=== PATIENT | male | born 1965 | race African-American/Black ===

== ENCOUNTER 2017-02-24 16:16 | Observation (INO) | payer MEDICARE, MEDICAID ==
[~2017-02-24] VITALS: Ht 172.7 cm; Wt 68.0 kg
[~2017-02-24 16:16] MED LIST: BACTRIM DS1 TAB PO; CEPHALEXIN500 M1 PO; CRESTOR10 MG PO; CRESTOR5 MG PO; DIPHENHYDRAM25 M2 PO; FIORICET PO; FISH OIL1000 MG PO; FLEXERIL OR; FLEXERIL PO; FLEXERIL5 M1 PO; FLUOXETINE20 MG PO; GLUCOSE METER XX; HUMULIN 70/30 SC; HYDROMORPHON8 MG PO; IBUPROFEN800 MG PO; KETOCONAZOLE2 % EX; LAMICTAL100 M1 OR; LISINOPRIL10 MG PO; LISINOPRIL5 MG PO; LORTAB 5/3255 MG PO; METFORMIN1000 MG PO; METFORMIN500 M1 PO; MORPHINE SUL60 MG PO; NAPROSYN375 MG PO; NAPROSYN500 MG PO; NOVOLIN 70/30 SC; NOVOLIN R IJ; PREDNISONE20 MG PO; TESSALON PER100 MG PO; TIZANIDINE4 MG PO; TRAZODONE50 MG PO; ULTRAM50 M1 PO; VENTOLIN HFA IN; ZITHROMAX250 MG PO; ZITHROMAX500 MG PO; ZOFRAN4 MG/TAB PO; ZPAK PO; [UNRECOGNIZED DRUG - SUPPLY] SC; [UNRECOGNIZED DRUG - SUPPLY] SC
--- NOTE | 2017-02-24 16:16 | NUR ---
TO ROOM 12 VIA STRETCHER BY EMS. ALERT. DRINKING WATER. STATES HE TAKESINSULIN WHEN HE THINKS ABOUT IT.... IS SUPPOSED TO TAKE A B/P PILL AND A WATER PILL BUT DOESN'T TAKE THEM. LAST TAKEN 3 DAYS AGO
[2017-02-24 16:52] LABS: HEMATOCRIT 49.4 % (39.0-50.0); HEMOGLOBIN 17.8 g/dl (14.0-18.0); IMMATURE GRANULOCYTES 0.2 % (0.0-1.0); MEAN CORPUSCULAR HGB 29.9 pG CALC (26.0-32.0); NEUT# 2.7 thou/uL (1.82-7.42); RED BLOOD COUNT 5.95 mill/uL (4.70-6.10); RED CELL DISTRI WIDTH 13.8 % (11.5-15.5)
[2017-02-24 17:37] LABS: ALBUMIN 4.5 g/dL (3.2-5.0); ALKALINE PHOSPHATASE 105 u/l (38-126); ANION GAP 18 (6-22 (CALC)); BILIRUBIN, TOTAL 0.7 mg/dL (0.0-1.4); BUN 17 mg/dL (9-20); BUN/CREATININE RATIO 16 (12-20 (CALC)); CALCIUM 9.4 mg/dL (8.4-10.2); CARBON DIOXIDE 26 mmol/l (22-30); CHLORIDE 96 mmol/l (95-108); CREATININE 1.1 mg/dL (0.7-1.3); GFR > 60 ML/MIN (>=60 (CALC)); GFR FOR AFR.AMER. > 60 ML/MIN (>=60 (CALC)); POTASSIUM 4.6 mmol/l (3.5-5.1); SGOT/AST 16 u/l (17-59); SGPT/ALT 38 u/l (21-72); SODIUM 135 mmol/l (137-146); TOTAL PROTEIN 7.4 g/dL (6.3-8.2)
[2017-02-24] MEDS ORDERED: B/P PILL (17:38)
[2017-02-24] MEDS ORDERED: WATER PILL PO (17:38)
[2017-02-24 17:45] LABS: GLUCOSE 641 mg/dL (75-110)
[2017-02-24 17:49] LABS: MYOGLOBIN 39 ng/mL (0 - 121)
--- NOTE | 2017-02-24 18:15 | NUR ---
SOCO PRINTED TO MED SURG
--- NOTE | 2017-02-24 18:37 | NUR ---
PT RESTS IN THE STRETCHER WITH FAMILY AT BEDSIDE, NO COMPLAINTS OR DISTRESS NOTED.
--- NOTE | 2017-02-24 18:59 | NUR ---
REPORT CALLED TO MARY, TO FLOOR SOON.
--- NOTE | 2017-02-24 19:18 | NUR ---
PT PRESENTED TO THE ROOM WITH ER STAFF AT 191. PT ORIENTED TO ROOM AND CALL LIGHT SYSTEM. IV PATENT. PT HAS NO COMPLAINTS OF PAIN AT THIS TIME. PT AMBULATED FROM WHEELCHAIR TO BED. RESP EVEN AND UNLABORED. PT STATED HIS "HEAD WAS ITCHY". PT HAS A SMALL SCAB ON THE BACK OF HIS HEAD. PT STATES THAT HE HAS NOT HAD ANY FALLS RECENTLY. PT STATES THE SCAB "MIGHT BE FROM THE BED BUGS AT HOME". WILL CONTINUE TO MONITOR BLOOD SUGAR CLOSELY. CALL LIGHT WITHIN REACH.
--- NOTE | 2017-02-24 19:20 | NUR ---
TRANSPORTED PT TO FLOOR FOR YESSENIA ARGUETA WHO ALREADY GAVE REPORT. IV INFUSING TO RFA
[2017-02-24 20:00] VITALS: BP 135/89
--- NOTE | 2017-02-25 00:20 | NUR ---
NOTIFY DR GRIGGS OF PATIENT BLOOD SUGAR LEVEL. ORDERS RECEIVED FOR 10 UNITS OF NOVOLOG.
[2017-02-25 00:31] VITALS: BP 125/76
--- NOTE | 2017-02-25 00:39 | NUR ---
PT GIVEN NOVOLOG 10 UNITS FOR BLOOD SUGAR OF 489. WILL CONTINUE TO MONITOR.
--- NOTE | 2017-02-25 03:20 | NUR ---
PT RESTING IN BED AT THIS TIME AND APPEARS TO BE SLEEPING WITH EYES CLOSED. NO ACUTE SIGNS OF DISTRESS NOTED. IV PATENT. RESP EVEN AND UNLABORED. CALL LIGHT WITHIN REACH.
[2017-02-25 04:48] VITALS: BP 133/69
--- NOTE | 2017-02-25 05:57 | NUR ---
NO ACUTE CHANGES IN PT CONDITION. PT APPEARS TO BE SLEEPING AT THIS TIME. RESP EVEN AND UNLABORED. IV PATENT. CALL LIGHT WITHIN REACH.
[2017-02-25 06:00] LABS: HEMATOCRIT 43.9 % (39.0-50.0); HEMOGLOBIN 15.7 g/dl (14.0-18.0); MEAN CELL VOLUME 84.6 fL CALC (80.0-100.0); MEAN CORPUSCULAR HGB 30.3 pG CALC (26.0-32.0); MEAN CORPUSCULAR HGB CONC 35.8 g/L CALC (32.0-36.0); RED BLOOD COUNT 5.19 mill/uL (4.70-6.10); RED CELL DISTRI WIDTH 12.1 % (11.5-15.5)
[2017-02-25 06:06] LABS: ANION GAP 17 (6-22 (CALC)); BUN 22 mg/dL (9-20); BUN/CREATININE RATIO 21 (12-20 (CALC)); CALCIUM 9.6 mg/dL (8.4-10.2); CALCULATED LDLCHOLESTEROL 71 mg/dL (62-129 (CALC)); CARBON DIOXIDE 25 mmol/l (22-30); CHLORIDE 103 mmol/l (95-108); CHOLESTEROL HDL RATIO 2.5 (<4.4 (CALC)); CREATININE 1.1 mg/dL (0.7-1.3); GFR > 60 ML/MIN (>=60 (CALC)); GFR FOR AFR.AMER. > 60 ML/MIN (>=60 (CALC)); GLUCOSE 281 mg/dL (75-110); HDL CHOLESTEROL 61 mg/dL (>=40); MAGNESIUM 2.1 mg/dL (1.6-2.3); POTASSIUM 4.4 mmol/l (3.5-5.1); SODIUM 140 mmol/l (137-146); TOTAL CHOLESTEROL 153 mg/dl (0-199); TOTAL TRIGLYCERIDES 101 mg/dl (30-149); VLDL CHOLESTROL 20 mg/dl (8-62 (CALC))
[2017-02-25 08:40] VITALS: BP 141/80
--- NOTE | 2017-02-25 08:45 | NUR ---
PT INFORMED OF ISOLATION PRECAUTIONS IN REGARDS TO REPORTED BED BUGS WITHIN THE LAST WEEK. PT STATES UNDERSTANDING, ASKS IF HE IS ALOUD VISITIORS. PT INFORMED OF THE RIGHT TO HAVE A PT ADVOCATE. ADVISED PT THAT IF HE DID NOT WANT VISITORS, THEY COULD BRING ITEMS TO DESK AND STAFF COULD DELIVER. STATES UNDERSTANDING. DISPOSITION IS PLEASANT, AFTER CHANGES AND ISOLATION ATTIRE PRESENTED.
--- NOTE | 2017-02-25 12:30 | NUR ---
PT VISITOR EDUCATED OF PROPER ATTIRE FOR ISOLATION, STATES UNDERSTANDING. ALSO INFORMED STAFF OF DISLODGED IV SITE. MD NOTIFIED, ORDER FOR NO IV SITE GIVEN AT THIS TIME. PT INFORMED OF UPDATE AND SET-UP FOR SHOWER.
[2017-02-25] MEDS ORDERED: LEVEMIR FL100 UNIT/M SC (14:32)
[2017-02-25] MEDS ORDERED: JANUVIA100 MG PO (14:32)
--- NOTE | 2017-02-25 14:59 | NUR ---
PT LEFT FLOOR AT THIS TIME WITHOUT DISCHARGE PAPERWORK OR PRESCRIPTIONS, TOLD UC "MY RIDE IS HERE, KEELY GOT TO GO." MD ON FLOOR AND AWARE, NEXT OF KIN NOTIFIED AND STATES "IM GOING TO BRING HIM BACK UP THEIR." DISCHARGE PAPERWORK AT DESK FOR WHEN HE COMES BACK
== END 2017-02-25 14:39 | disposition home or self-care (01) ==
LOC: ED 16:16 → ED-I 16:56 → ED 18:13 → MS2 18:14
PROVIDERS: Emergency Medicine; ADMIT Internal Medicine; ATTEND Internal Medicine
PROC: 3E0234Z Introduction of Serum, Toxoid and Vaccine into Muscle, Percutaneous Approach (ICD-10-PCS; principal; 2017-02-25)
PROC: 3E0234Z Introduction of Serum, Toxoid and Vaccine into Muscle, Percutaneous Approach (ICD-10-PCS; 2017-02-25)
DX: E11.65 Type 2 diabetes mellitus with hyperglycemia (principal); I10 Essential (primary) hypertension; E78.5 Hyperlipidemia, unspecified; F17.210 Nicotine dependence, cigarettes, uncomplicated; Z23 Encounter for immunization; Z79.4 Long term (current) use of insulin; Z91.14 Patient's other noncompliance with medication regimen

== ENCOUNTER 2017-12-05 16:32 | Emergency (ER) | payer MEDICARE ==
[~2017-12-05] VITALS: Ht 172.7 cm; Wt 78.0 kg
[~2017-12-05 16:32] MED LIST changes: +B/P PILL; +JANUVIA100 MG PO; +LEVEMIR FL100 UNIT/M SC; +WATER PILL PO
[2017-12-05 17:07] VITALS: BP 143/93
== END 2017-12-05 17:09 | disposition home or self-care (01) ==
LOC: ED 16:32
DX: Z76.0 Encounter for issue of repeat prescription (principal); E11.65 Type 2 diabetes mellitus with hyperglycemia; F17.210 Nicotine dependence, cigarettes, uncomplicated; Z91.19 Patient's noncompliance with other medical treatment and regimen; Z79.4 Long term (current) use of insulin

== ENCOUNTER 2018-02-07 01:27 | Emergency (ER) | payer MEDICARE ==
[~2018-02-07] VITALS: Ht 172.7 cm; Wt 82.3 kg
[2018-02-07 02:12] LABS: HEMATOCRIT 45.8 % (39.0-50.0); HEMOGLOBIN 16.3 g/dl (14.0-18.0); IMMATURE GRANULOCYTES 0.1 % (0.0-5.0); MEAN CELL VOLUME 83.3 fL CALC (80.0-100.0); MEAN CORPUSCULAR HGB 29.6 pG CALC (26.0-32.0); MEAN CORPUSCULAR HGB CONC 35.6 g/L CALC (32.0-36.0); NEUT# 5.52 thou/uL (1.82-7.42); RED BLOOD COUNT 5.5 mill/uL (4.70-6.10); RED CELL DISTRI WIDTH 12.5 % (11.5-15.5)
[2018-02-07 02:27] LABS: ALBUMIN 4.4 g/dL (3.2-5.0); ALKALINE PHOSPHATASE 107 u/l (38-126); AMYLASE 62 u/l (30-110); ANION GAP 18 (6-22 (CALC)); BUN 15 mg/dL (9-20); BUN/CREATININE RATIO 13 (12-20 (CALC)); CARBON DIOXIDE 27 mmol/l (22-30); CHLORIDE 97 mmol/l (95-108); CREATININE 1.1 mg/dL (0.7-1.3); GFR > 60 ML/MIN (>=60 (CALC)); GFR FOR AFR.AMER. > 60 ML/MIN (>=60 (CALC)); LIPASE 85 u/l (23-300); POTASSIUM 4.4 mmol/l (3.5-5.1); SGOT/AST 31 u/l (17-59); SODIUM 137 mmol/l (137-146); TOTAL PROTEIN 7.8 g/dL (6.3-8.2)
[2018-02-07] MEDS ORDERED: PHENERGAN25 MG RE (04:57)
[2018-02-07 05:00] VITALS: BP 125/68
== END 2018-02-07 05:05 | disposition home or self-care (01) ==
LOC: ED 01:27
PROVIDERS: Family Medicine
DX: K52.9 Noninfective gastroenteritis and colitis, unspecified (principal); E11.9 Type 2 diabetes mellitus without complications

== ENCOUNTER 2018-04-20 11:22 | Emergency (ER) | payer MEDICARE, MEDICAID ==
[~2018-04-20] VITALS: Ht 172.7 cm; Wt 90.0 kg
[~2018-04-20 11:22] MED LIST changes: +PHENERGAN25 MG RE
[2018-04-20 12:32] LABS: URINE BILIRUBIN - DIPSTICK NEGATIVE (NEGATIVE); URINE BLOOD DIPSTICK NEGATIVE (NEGATIVE); URINE COLOR YELLOW; URINE GLUCOSE - DIPSTICK >=1000 mg/dL (NEGATIVE); URINE KETONE 15 mg/dL (NEGATIVE); URINE LEUK ESTERASE NEGATIVE (NEGATIVE); URINE NITRITE - DIPSTICK NEGATIVE (Negative); URINE PROTEIN - DIPSTICK NEGATIVE (NEG-TRACE); URINE UROBILINOGEN - DIPSTICK 0.2 E.U./dL (0.2)
[2018-04-20 12:47] LABS: HEMATOCRIT 44.1 % (39.0-50.0); HEMOGLOBIN 15.6 g/dl (14.0-18.0); IMMATURE GRANULOCYTES 0.1 % (0.0-5.0); MEAN CELL VOLUME 82.9 fL CALC (80.0-100.0); MEAN CORPUSCULAR HGB 29.3 pG CALC (26.0-32.0); MEAN CORPUSCULAR HGB CONC 35.4 g/L CALC (32.0-36.0); NEUT# 4.79 thou/uL (1.82-7.42); RED BLOOD COUNT 5.32 mill/uL (4.70-6.10); RED CELL DISTRI WIDTH 12.8 % (11.5-15.5)
[2018-04-20 12:54] LABS: ALBUMIN 4.2 g/dL (3.2-5.0); ALKALINE PHOSPHATASE 112 u/l (38-126); ANION GAP 19 (6-22 (CALC)); BILIRUBIN, TOTAL 1.1 mg/dL (0.0-1.4); BUN 16 mg/dL (9-20); BUN/CREATININE RATIO 14 (12-20 (CALC)); CARBON DIOXIDE 23 mmol/l (22-30); CHLORIDE 94 mmol/l (95-108); CREATININE 1.1 mg/dL (0.7-1.3); GFR > 60 ML/MIN (>=60 (CALC)); GFR FOR AFR.AMER. > 60 ML/MIN (>=60 (CALC)); POTASSIUM 4.4 mmol/l (3.5-5.1); SGOT/AST 26 u/l (17-59); SODIUM 132 mmol/l (137-146); TOTAL PROTEIN 7.2 g/dL (6.3-8.2)
[2018-04-20 13:06] LABS: MYOGLOBIN 86 ng/mL (0 - 121)
[2018-04-20 13:50] LABS: BARBITURATES NEGATIVE (NEGATIVE); COCAINE POSITIVE (NEGATIVE); METHADONE NEGATIVE (NEGATIVE); OXCYCODONE NEGATIVE (NEGATIVE); TETRAHYDROCANNABIONOL NEGATIVE (NEGATIVE); TRICYLIC ANTIDEPRESSANTS NEGATIVE (NEGATIVE)
[2018-04-20] MEDS ORDERED: LEVEMIR FL100 UNIT/M SC (14:52)
[2018-04-20 15:17] VITALS: BP 134/84
[2018-04-20] MEDS ORDERED: NOVOLIN 70/30 SC (15:56)
== END 2018-04-20 15:41 | disposition home or self-care (01) ==
LOC: ED 11:22
PROVIDERS: Emergency Medicine
DX: E11.65 Type 2 diabetes mellitus with hyperglycemia (principal); T38.3X6A Underdosing of insulin and oral hypoglycemic [antidiabetic] drugs, initial encounter; F17.210 Nicotine dependence, cigarettes, uncomplicated; Z79.4 Long term (current) use of insulin

== ENCOUNTER 2018-07-15 13:30 | Observation (INO) | payer MEDICARE, MEDICAID ==
[~2018-07-15] VITALS: Ht 172.7 cm; Wt 68.0 kg
[2018-07-15] VITALS (11 sets, daily range): BP systolic 113–149; BP diastolic 73–97
--- NOTE | 2018-07-15 13:39 | NUR ---
PT TO ROOM VIA EMS PT STATES THAT HE LAST HAD HIS INSULIN 07/09/18- AND HAS RAN OUT SINCE THEN. PT STATES HAVING HEADACHE THAT OCCURS WHEN HIS SUGAR TAPAN HIGH. PT IS AOX4. DENIES ANY C/P, SOB, N/V OR WEAKNESS.
[2018-07-15 14:04] LABS: HEMATOCRIT 49.3 % (39.0-50.0); HEMOGLOBIN 17.3 g/dl (14.0-18.0); IMMATURE GRANULOCYTES 0.3 % (0.0-5.0); MEAN CELL VOLUME 82.6 fL CALC (80.0-100.0); MEAN CORPUSCULAR HGB CONC 35.1 g/L CALC (32.0-36.0); NEUT# 4.34 thou/uL (1.82-7.42); RED BLOOD COUNT 5.97 mill/uL (4.70-6.10); RED CELL DISTRI WIDTH 12.3 % (11.5-15.5)
[2018-07-15 14:22] LABS: ALBUMIN 4.8 g/dL (3.2-5.0); ALKALINE PHOSPHATASE 117 u/l (38-126); BILIRUBIN, TOTAL 0.8 mg/dL (0.0-1.4); BUN 31 mg/dL (9-20); BUN/CREATININE RATIO 24 (12-20 (CALC)); CARBON DIOXIDE 23 mmol/l (22-30); CHLORIDE 90 mmol/l (95-108); CREATININE 1.3 mg/dL (0.7-1.3); GFR 58 ML/MIN (>=60 (CALC)); GFR FOR AFR.AMER. > 60 ML/MIN (>=60 (CALC)); LIPASE 151 u/l (23-300); SGOT/AST 31 u/l (17-59); SODIUM 130 mmol/l (137-146); TOTAL PROTEIN 7.8 g/dL (6.3-8.2)
[2018-07-15 14:33] LABS: ANION GAP 23 (6-22 (CALC)); POTASSIUM 6.1 mmol/l (3.5-5.1)
--- NOTE | 2018-07-15 14:34 | NUR ---
PT ASLEEP ON STRETCHER, IV PATENT WITH FLUIDS RUNNING.
--- NOTE | 2018-07-15 14:47 | NUR ---
SBAR PRINTED TO FLOOR
--- NOTE | 2018-07-15 15:10 | NUR ---
PT INFORMED OF ADMISSON. NO COMPLAINTS STATED AT THIS TIME.
--- NOTE | 2018-07-15 15:17 | NUR ---
REPORT CALLED TO ICU,SHARON CASAS ACCEPTED PT
--- NOTE | 2018-07-15 15:23 | NUR ---
PT ARRIVED TO ICU 6 BY STRETCHER WITH IV MEDS. NONSLID SOCKS PLACED ON PT. PT WALKED TO NEW BED WITH STEADY GAIT. ON MONITOR. IVF RUNNING. IV INSULIN RUNNING AT 5units PER HOUR.
--- NOTE | 2018-07-15 15:34 | NUR ---
Admission Note Report Given to: SHARON RN Transported by: Wheelchair X Stretcher Transported with: X Nurse Transporter X Patent IV O2 X Cork Tipper TRANSPORTED TO ICU 6 WITHOUT INCIDENT
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
[2018-07-15 16:09] LABS: URINE BILIRUBIN - DIPSTICK NEGATIVE (NEGATIVE); URINE BLOOD DIPSTICK NEGATIVE (NEGATIVE); URINE COLOR YELLOW; URINE GLUCOSE - DIPSTICK >=1000 mg/dL (NEGATIVE); URINE KETONE 15 mg/dL (NEGATIVE); URINE LEUK ESTERASE NEGATIVE (NEGATIVE); URINE NITRITE - DIPSTICK NEGATIVE (Negative); URINE PH 6.5 (4.5-8.0); URINE PROTEIN - DIPSTICK NEGATIVE (NEG-TRACE); URINE UROBILINOGEN - DIPSTICK 0.2 E.U./dL (0.2)
[2018-07-15] MEDS ORDERED: LOSARTAN POT25 MG PO (16:39)
[2018-07-15] MEDS ORDERED: HUMULIN 70/30 SC (16:39)
[2018-07-15] MEDS ORDERED: CRESTOR20 MG PO (16:40)
[2018-07-15] MEDS ORDERED: TERBINAFINE250 M1 PO (16:41)
[2018-07-15] MEDS ORDERED: VITAMI16 (16:42)
[2018-07-15] MEDS ORDERED: VITAMIN B (16:42)
[2018-07-15] MEDS ORDERED: VITAMIN D (16:43)
[2018-07-15] MEDS ORDERED: VITAMIN B650 MG (16:43)
--- NOTE | 2018-07-15 16:52 | NUR ---
DR CLEMENTS @BEDSIDE WITH PT.
--- NOTE | 2018-07-15 17:20 | NUR ---
PT UP TO SIDE OF BED TO USE URINAL.
--- NOTE | 2018-07-15 17:41 | NUR ---
DINNER TRAY HELD IN NOURISHMENT ROOM UNTIL PTS OFF INSULIN DRIP.
--- NOTE | 2018-07-15 19:00 | NUR ---
awake. denies n/v. monitoring engineer shows sinus rhythm. #18 lac. insulin gtt infusing @ 4u/hr, 1/2 ns infusing @ 75cchr. voids per urinal. fall precautions cont. supper meal given.
--- NOTE | 2018-07-15 22:00 | NUR ---
watching tv. denies distress. terminal supervisor shows sinus rhythm.
[2018-07-16] VITALS (17 sets, daily range): BP systolic 111–159; BP diastolic 65–93
--- NOTE | 2018-07-16 00:01 | NUR ---
awakens easily. denies c/o. ivf infusing well.
--- NOTE | 2018-07-16 02:00 | NUR ---
resting quietly. resps even & unlabored. color television console monitor shows sinus rhythm.
--- NOTE | 2018-07-16 04:00 | NUR ---
yes closed. no distress. drapery counselor shows sinus rhythm.
--- NOTE | 2018-07-16 05:00 | NUR ---
lab here. blood drawn.
[2018-07-16 05:17] LABS: HEMATOCRIT 45.1 % (39.0-50.0); HEMOGLOBIN 15.9 g/dl (14.0-18.0); IMMATURE GRANULOCYTES 0.2 % (0.0-5.0); MEAN CELL VOLUME 82.8 fL CALC (80.0-100.0); MEAN CORPUSCULAR HGB 29.2 pG CALC (26.0-32.0); MEAN CORPUSCULAR HGB CONC 35.3 g/L CALC (32.0-36.0); NEUT# 3.05 thou/uL (1.82-7.42); RED BLOOD COUNT 5.45 mill/uL (4.70-6.10); RED CELL DISTRI WIDTH 12.3 % (11.5-15.5)
[2018-07-16 05:43] LABS: ALKALINE PHOSPHATASE 85 u/l (38-126); AMYLASE 43 u/l (30-110); BILIRUBIN, TOTAL 0.5 mg/dL (0.0-1.4); BUN 24 mg/dL (9-20); BUN/CREATININE RATIO 26 (12-20 (CALC)); CARBON DIOXIDE 25 mmol/l (22-30); CREATININE 0.9 mg/dL (0.7-1.3); GFR > 60 ML/MIN (>=60 (CALC)); GFR FOR AFR.AMER. > 60 ML/MIN (>=60 (CALC)); LIPASE 148 u/l (23-300); SGOT/AST 19 u/l (17-59); TOTAL PROTEIN 6.4 g/dL (6.3-8.2)
[2018-07-16 05:45] LABS: ALBUMIN 3.7 g/dL (3.2-5.0); ANION GAP 14 (6-22 (CALC))
[2018-07-16 05:46] LABS: CHLORIDE 102 mmol/l (95-108); POTASSIUM 3.8 mmol/l (3.5-5.1); SODIUM 137 mmol/l (137-146)
--- NOTE | 2018-07-16 07:00 | NUR ---
pt awake in bed; no apparent distress noted; pt offers no complaints; assessment completed at this time; pt alert and oriented; denies pain; no n/v noted; resp even and unlabored; lungs clear bilat; skin color wnl; ra; hr reg; strong pulses; no edema noted; sr on monitor; abd soft with bs present; no bm noted per job specification writer; no urine to inspect at this time; urinal at bedside; #18 ems site present to [facility] with ivf infusing without complication; insulin gtt at 1 unit/hr; accucheck 132; plan of care/ am meds/ diet explained; pt up to sink for oral care; call light within reach; will continue to monitor
--- NOTE | 2018-07-16 08:08 | NUR ---
awake in bed eating breakfast; offers no complaints; no apparent distress noted; resp even and unlabored; iv intact; insulin gtt continues at 1units/hr; sr on monitor; call light within reach; will continue to monitor
--- NOTE | 2018-07-16 09:00 | NUR ---
awake in bed; breakfast tolerated; iv patent with insulin gtt infusing per protocol; nicotine patch explained; sr on monitor; call light within reach; will continue to monitor
--- NOTE | 2018-07-16 10:05 | NUR ---
Dr Schmidt present at bedside to assess pt and discuss plan of care
--- NOTE | 2018-07-16 10:21 | NUR ---
awake in bed; plan of care explained; levemir and ss coverage explained; sr on monitor; call light within reach; will continue to monitor
--- NOTE | 2018-07-16 11:32 | NUR ---
insulin gtt stopped, MD ordered to discontinue gtt one hour after levemir; iv flushed and patent; plan of care explained; lunch provided; will continue to monitor
--- NOTE | 2018-07-16 12:26 | NUR ---
pt awake in bed; no apparent distress noted; iv intact; no redness or edema noted at site; sr on monitor; pt deny needs; accucheck 391; call light within reach; will continue to monitor
--- NOTE | 2018-07-16 14:00 | NUR ---
awake in bed; sr on montor; visitor x2 at bedside; iv intact; no redness or edema noted at site; pt offers no complaints/ deny needs; call light within reach; will continue to monitor
--- NOTE | 2018-07-16 16:05 | NUR ---
awake in bed; offers no complaints; no apparent distress noted; resp even and unlabored; iv intact; sr on monitor; call light within reach; will continue to monitor
--- NOTE | 2018-07-16 18:02 | NUR ---
awake in bed eating dinner; no distress noted; pt offers no complaints; sr on monitor; patient explained iv access will need to be changed d/t EMS; pt questions if he will go home tomorrow; explained to pt, depending on glucose control during the night; pt informed this scenario writer "I don't want to go home tomorrow";plan of care explained; will continue to monitor
--- NOTE | 2018-07-16 19:10 | NUR ---
awake. denies distress. cardiac cath lab radiology technologist shows sinus rhythm. @18lac saline lock. po fluids taken well. voids per urinal. fall precautions cont.
--- NOTE | 2018-07-16 20:20 | NUR ---
friend vs. michelle garcia bag given to pt.
--- NOTE | 2018-07-16 20:30 | NUR ---
awake. burger jose bag on table. admits "i think i need more of that water. it makes me feel better." pt speaking about ivf. instructed pt no need for more. instructed pt about need to stay on diabetic diet. pt admits "i haven't eaten it yet."
[2018-07-17] VITALS (8 sets, daily range): BP systolic 101–158; BP diastolic 67–99
--- NOTE | 2018-07-17 00:01 | NUR ---
eyes closed. no distress. conveyor monitor shows sinus rhythm.
--- NOTE | 2018-07-17 02:00 | NUR ---
resting quietly. resps even & unlabored. no apparent distress.
--- NOTE | 2018-07-17 03:00 | NUR ---
awake. eating burger jose. pt asked this expert medical writer if "i can have a little rehab?" instructed pt no need for rehab. asked pt why he didn't wan't to go home. pt admitted "i don't." pt speaks of having a 1 & 2 yr old child with his girlfriend & having personal issues. pt reassured.
--- NOTE | 2018-07-17 05:00 | NUR ---
lab here. blood drawn.
[2018-07-17 05:26] LABS: HEMATOCRIT 44.8 % (39.0-50.0); HEMOGLOBIN 15.6 g/dl (14.0-18.0); IMMATURE GRANULOCYTES 0.2 % (0.0-5.0); MEAN CELL VOLUME 84.1 fL CALC (80.0-100.0); MEAN CORPUSCULAR HGB 29.3 pG CALC (26.0-32.0); MEAN CORPUSCULAR HGB CONC 34.8 g/L CALC (32.0-36.0); NEUT# 2.84 thou/uL (1.82-7.42); RED BLOOD COUNT 5.33 mill/uL (4.70-6.10); RED CELL DISTRI WIDTH 12.3 % (11.5-15.5)
[2018-07-17 05:27] LABS: ALBUMIN 3.3 g/dL (3.2-5.0); BILIRUBIN, TOTAL 0.6 mg/dL (0.0-1.4); BUN 28 mg/dL (9-20); BUN/CREATININE RATIO 28 (12-20 (CALC)); CARBON DIOXIDE 23 mmol/l (22-30); CHLORIDE 100 mmol/l (95-108); GFR > 60 ML/MIN (>=60 (CALC)); GFR FOR AFR.AMER. > 60 ML/MIN (>=60 (CALC)); MAGNESIUM 1.8 mg/dL (1.6-2.3); SGOT/AST 25 u/l (17-59); SODIUM 132 mmol/l (137-146); TOTAL PROTEIN 5.8 g/dL (6.3-8.2)
[2018-07-17 05:34] LABS: ANION GAP 14 (6-22 (CALC)); POTASSIUM 4.6 mmol/l (3.5-5.1)
[2018-07-17 05:35] LABS: ALKALINE PHOSPHATASE 154 u/l (38-126)
--- NOTE | 2018-07-17 07:20 | NUR ---
DR CLEMENTS NOTIFIED OF ACCUCHECK CRITICAL HIGH AND AM LAB 500.
--- NOTE | 2018-07-17 07:30 | NUR ---
PT RESTING IN BED AWAKE. PT IS ALERT AND ORIENTED X3. SHIFT ASSESSMENT COMPLETED AT THIS TIME. IV PATENT X1. MEDICATED WITH AM INSULIN PER MAY. CALL LIGHT IN REACH. WILL CONTNUE TO ONITOR
--- NOTE | 2018-07-17 07:45 | NUR ---
SET UP FOR AM MEAL
--- NOTE | 2018-07-17 09:00 | NUR ---
AM MEDS GIVEN PER MAR. PT WANTING TO DISCUSS GOING TO DRUG REHAB AND STATES THAT HE HAS MONEY AND THAT HE USES CRACK COCAINE. COUNSELED PATIENT THAT WE ALL HAVE CHOICES IN LIFE AND AT SOME POINT WE HAVE TO MAKE THE RIGHT CHOICES AND STAY AWAY FROM TRIGGERS THAT. THEN PATIENT GOES ON TO STATING THAT HIS CHILDREN GLADYS IS ASKING FOR MONEY FOR SHOES. EXPLAINED THE EFFECTS OF DRUGS AND THAT IF HE WANTED TO BE HEALTHY FOR HIS CHILDREN HE MAY NEED TO MAKE MISTI RCHOICES.
--- NOTE | 2018-07-17 10:01 | NUR ---
DR CLEMENTS AT BEDSIDE TO DISCUSS PLAN OF CARE
--- NOTE | 2018-07-17 10:04 | NUR ---
OUTPATIENT DRUG REHAB SERVICE NUMBERS PROVIDED FOR PATIENT.
--- NOTE | 2018-07-17 10:13 | NUR ---
IV site discontinued, cath intact. No edema , no redness, voices no discomfort.
--- NOTE | 2018-07-17 10:25 | NUR ---
PT REFUSED TO GO BACK INTO ROOM TO RECEIVE FULL DISCHARGE INSTRUCTION. ASKED PATIENT TO WAIT TO BE TAKEN DOWN VIA WHEELCHAIR. PATIENT REFUSED STATING HE COULD WALK DOWN. PT LEFT UNIT AMBULATORY. WRITTEN INSTRUCTIONS SENT WITH PATIENT AND OUTPATIENT DRUG REHAB AND PHONE NUMBERS.
[2018-07-17 11:27] LABS: BARBITURATES NEGATIVE (NEGATIVE); COCAINE POSITIVE (NEGATIVE); METHADONE NEGATIVE (NEGATIVE); OXCYCODONE NEGATIVE (NEGATIVE); TETRAHYDROCANNABIONOL NEGATIVE (NEGATIVE); TRICYLIC ANTIDEPRESSANTS NEGATIVE (NEGATIVE)
== END 2018-07-17 10:25 | disposition home or self-care (01) ==
LOC: ED 13:30 → ED-I 14:32 → ED 14:46 → ICU 14:47
PROVIDERS: Family Medicine; ADMIT Internal Medicine Nephrology; ATTEND Internal Medicine Nephrology
DX: E11.00 Type 2 diabetes mellitus with hyperosmolarity without nonketotic hyperglycemic-hyperosmolar coma (NKHHC) (principal); E11.65 Type 2 diabetes mellitus with hyperglycemia; I10 Essential (primary) hypertension; E78.5 Hyperlipidemia, unspecified; F41.8 Other specified anxiety disorders; E87.6 Hypokalemia; F14.90 Cocaine use, unspecified, uncomplicated; F17.200 Nicotine dependence, unspecified, uncomplicated; T38.3X6A Underdosing of insulin and oral hypoglycemic [antidiabetic] drugs, initial encounter; Z91.128 Patient's intentional underdosing of medication regimen for other reason; Z79.4 Long term (current) use of insulin; Z91.11 Patient's noncompliance with dietary regimen
CPT/HCPCS: J1650

== ENCOUNTER 2019-01-05 03:21 | Emergency (ER) | payer MEDICARE, MEDICAID ==
[~2019-01-05] VITALS: Ht 172.7 cm; Wt 73.0 kg
[~2019-01-05 03:21] MED LIST changes: +CRESTOR20 MG PO; +LOSARTAN POT25 MG PO; +TERBINAFINE250 M1 PO; +VITAMI16; +VITAMIN B; +VITAMIN B650 MG; +VITAMIN D
[2019-01-05 04:04] LABS: HEMATOCRIT 41.6 % (39.0-50.0); HEMOGLOBIN 14.7 g/dl (14.0-18.0); IMMATURE GRANULOCYTES 0.1 % (0.0-5.0); MEAN CELL VOLUME 83.2 fL CALC (80.0-100.0); MEAN CORPUSCULAR HGB 29.4 pG CALC (26.0-32.0); MEAN CORPUSCULAR HGB CONC 35.3 g/L CALC (32.0-36.0); NEUT# 4.72 thou/uL (1.82-7.42); RED CELL DISTRI WIDTH 11.9 % (11.5-15.5)
[2019-01-05 04:15] LABS: ALKALINE PHOSPHATASE 96 u/l (38-126); ANION GAP 21 (6-22 (CALC)); BUN 23 mg/dL (9-20); BUN/CREATININE RATIO 19 (12-20 (CALC)); CARBON DIOXIDE 23 mmol/l (22-30); CHLORIDE 90 mmol/l (95-108); CREATININE 1.2 mg/dL (0.7-1.3); GFR > 60 ML/MIN (>=60 (CALC)); GFR FOR AFR.AMER. > 60 ML/MIN (>=60 (CALC)); POTASSIUM 4.5 mmol/l (3.5-5.1); SGOT/AST 21 u/l (17-59); SODIUM 130 mmol/l (137-146)
[2019-01-05 04:17] LABS: URINE BILIRUBIN - DIPSTICK NEGATIVE (NEGATIVE); URINE BLOOD DIPSTICK NEGATIVE (NEGATIVE); URINE COLOR YELLOW; URINE GLUCOSE - DIPSTICK >=1000 mg/dL (NEGATIVE); URINE KETONE 15 mg/dL (NEGATIVE); URINE LEUK ESTERASE NEGATIVE (NEGATIVE); URINE NITRITE - DIPSTICK NEGATIVE (Negative); URINE PROTEIN - DIPSTICK NEGATIVE (NEG-TRACE); URINE UROBILINOGEN - DIPSTICK 0.2 E.U./dL (0.2)
[2019-01-05 04:26] LABS: ALBUMIN 4.3 g/dL (3.2-5.0); TOTAL PROTEIN 7.4 g/dL (6.3-8.2)
[2019-01-05 04:27] LABS: MYOGLOBIN 66 ng/mL (0 - 121)
[2019-01-05] MEDS ORDERED: HUMULIN 70/30 SC (04:48)
[2019-01-05] MEDS ORDERED: NOVOLIN 70/30 SC (04:48)
[2019-01-05 05:00] VITALS: BP 122/73
== END 2019-01-05 05:15 | disposition home or self-care (01) ==
LOC: ED 03:21
PROVIDERS: Emergency Medicine
DX: E11.65 Type 2 diabetes mellitus with hyperglycemia (principal); E11.40 Type 2 diabetes mellitus with diabetic neuropathy, unspecified; I10 Essential (primary) hypertension; Z79.4 Long term (current) use of insulin

== ENCOUNTER 2019-01-13 04:11 | Observation (INO) | payer MEDICARE, MEDICAID ==
[~2019-01-13] VITALS: Ht 172.7 cm; Wt 74.2 kg
[2019-01-13] MEDS ORDERED: GABAPENTIN100 MG PO (04:34)
[2019-01-13 04:45] LABS: HEMATOCRIT 38.4 % (39.0-50.0); HEMOGLOBIN 13.1 g/dl (14.0-18.0); IMMATURE GRANULOCYTES 0.3 % (0.0-5.0); MEAN CELL VOLUME 86.1 fL CALC (80.0-100.0); MEAN CORPUSCULAR HGB 29.4 pG CALC (26.0-32.0); MEAN CORPUSCULAR HGB CONC 34.1 g/L CALC (32.0-36.0); NEUT# 3.6 thou/uL (1.82-7.42); RED BLOOD COUNT 4.46 mill/uL (4.70-6.10); RED CELL DISTRI WIDTH 12.5 % (11.5-15.5)
[2019-01-13 04:57] LABS: ALBUMIN 4.3 g/dL (3.2-5.0); ALKALINE PHOSPHATASE 117 u/l (38-126); AMYLASE 52 u/l (30-110); ANION GAP 18 (6-22 (CALC)); BILIRUBIN, TOTAL 1.4 mg/dL (0.0-1.4); BUN 21 mg/dL (9-20); BUN/CREATININE RATIO 19 (12-20 (CALC)); CARBON DIOXIDE 27 mmol/l (22-30); CHLORIDE 91 mmol/l (95-108); CREATININE 1.1 mg/dL (0.7-1.3); GFR > 60 ML/MIN (>=60 (CALC)); GFR FOR AFR.AMER. > 60 ML/MIN (>=60 (CALC)); LIPASE 184 u/l (23-300); POTASSIUM 4.8 mmol/l (3.5-5.1); SODIUM 132 mmol/l (137-146); TOTAL PROTEIN 7.1 g/dL (6.3-8.2)
[2019-01-13 05:05] LABS: SGOT/AST 69 u/l (17-59)
[2019-01-13 05:16] LABS: MYOGLOBIN 130 ng/mL (0 - 121)
[2019-01-13 05:53] LABS: URINE BILIRUBIN - DIPSTICK NEGATIVE (NEGATIVE); URINE BLOOD DIPSTICK NEGATIVE (NEGATIVE); URINE COLOR YELLOW; URINE GLUCOSE - DIPSTICK >=1000 mg/dL (NEGATIVE); URINE KETONE NEGATIVE (NEGATIVE); URINE LEUK ESTERASE NEGATIVE (NEGATIVE); URINE NITRITE - DIPSTICK NEGATIVE (Negative); URINE PH 5.5 (4.5-8.0); URINE PROTEIN - DIPSTICK NEGATIVE (NEG-TRACE); URINE SPECIFIC GRAVITY <=1.005; URINE UROBILINOGEN - DIPSTICK 0.2 E.U./dL (0.2)
[2019-01-13 05:59] LABS: BARBITURATES NEGATIVE (NEGATIVE); COCAINE POSITIVE (NEGATIVE); METHADONE NEGATIVE (NEGATIVE); OXCYCODONE NEGATIVE (NEGATIVE); TETRAHYDROCANNABIONOL NEGATIVE (NEGATIVE); TRICYLIC ANTIDEPRESSANTS NEGATIVE (NEGATIVE)
[2019-01-13 07:55] VITALS: BP 144/70
[2019-01-13] MEDS ORDERED: HUMULIN 70/30 SC (10:25)
[2019-01-13 15:55] VITALS: BP 136/68
[2019-01-13 19:35] VITALS: BP 132/77
[2019-01-13 23:56] VITALS: BP 118/64
[2019-01-14 04:30] VITALS: BP 119/73
[2019-01-14 04:48] LABS: HEMATOCRIT 33.2 % (39.0-50.0); HEMOGLOBIN 11.5 g/dl (14.0-18.0); IMMATURE GRANULOCYTES 0.3 % (0.0-5.0); MEAN CELL VOLUME 85.6 fL CALC (80.0-100.0); MEAN CORPUSCULAR HGB 29.6 pG CALC (26.0-32.0); MEAN CORPUSCULAR HGB CONC 34.6 g/L CALC (32.0-36.0); NEUT# 2.85 thou/uL (1.82-7.42); RED BLOOD COUNT 3.88 mill/uL (4.70-6.10); RED CELL DISTRI WIDTH 12.3 % (11.5-15.5)
[2019-01-14 05:10] LABS: ANION GAP 8 (6-22 (CALC)); BUN 19 mg/dL (9-20); BUN/CREATININE RATIO 19 (12-20 (CALC)); CARBON DIOXIDE 28 mmol/l (22-30); GFR > 60 ML/MIN (>=60 (CALC)); GFR FOR AFR.AMER. > 60 ML/MIN (>=60 (CALC)); POTASSIUM 4.5 mmol/l (3.5-5.1); SODIUM 135 mmol/l (137-146)
[2019-01-14 05:24] LABS: CHLORIDE 104 mmol/l (95-108)
[2019-01-14 07:59] VITALS: BP 131/79
[2019-01-14] MEDS ORDERED: HUMULIN 70/30 SC ×2 (09:27→09:28)
[2019-01-14 10:52] VITALS: BP 134/83
== END 2019-01-14 12:12 | disposition home or self-care (01) ==
LOC: ED 04:11 → ED-I 06:44 → ED 06:59 → MS2 06:59
PROVIDERS: Emergency Medicine; Nurse Practitioner Family; ADMIT Internal Medicine; ATTEND Internal Medicine
DX: E11.65 Type 2 diabetes mellitus with hyperglycemia (principal); E11.00 Type 2 diabetes mellitus with hyperosmolarity without nonketotic hyperglycemic-hyperosmolar coma (NKHHC); I10 Essential (primary) hypertension; E11.40 Type 2 diabetes mellitus with diabetic neuropathy, unspecified; E78.5 Hyperlipidemia, unspecified; T38.3X6A Underdosing of insulin and oral hypoglycemic [antidiabetic] drugs, initial encounter; F14.90 Cocaine use, unspecified, uncomplicated; F12.90 Cannabis use, unspecified, uncomplicated; R26.89 Other abnormalities of gait and mobility; R47.1 Dysarthria and anarthria; R55 Syncope and collapse; F17.200 Nicotine dependence, unspecified, uncomplicated; Z79.4 Long term (current) use of insulin; Z87.820 Personal history of traumatic brain injury; Z91.138 Patient's unintentional underdosing of medication regimen for other reason

== ENCOUNTER 2019-03-04 11:45 | Emergency (ER) | payer MEDICARE, MEDICAID ==
[~2019-03-04] VITALS: Ht 172.7 cm; Wt 68.6 kg
[~2019-03-04 11:45] MED LIST changes: +AMOXICILLIN/CL875 MG PO; +GABAPENTIN100 MG PO; +HYDROCO/APAP1 TA9 PO
[2019-03-04 13:33] VITALS: BP 127/76
== END 2019-03-04 13:41 | disposition home or self-care (01) ==
LOC: ED 11:45
DX: E11.65 Type 2 diabetes mellitus with hyperglycemia (principal); T38.3X6A Underdosing of insulin and oral hypoglycemic [antidiabetic] drugs, initial encounter; E11.40 Type 2 diabetes mellitus with diabetic neuropathy, unspecified; I10 Essential (primary) hypertension; F17.210 Nicotine dependence, cigarettes, uncomplicated; Z91.138 Patient's unintentional underdosing of medication regimen for other reason; Z79.4 Long term (current) use of insulin

== ENCOUNTER 2019-03-22 11:07 | Inpatient (IN) | payer MEDICARE, MEDICAID ==
[~2019-03-22] VITALS: Ht 172.7 cm; Wt 67.0 kg
--- NOTE | 2019-03-22 11:15 | NUR ---
PATIENT TO ROOM VIA EMS AND PRACTIONER NOTIFIED OF PATIENT STATUS
--- NOTE | 2019-03-22 12:05 | NUR ---
PT RESTING QUIETLY ON STRETCHER, STATES HAS NOT TAKEN ANY DIABETIC MEDICATIONS FOR SEVERAL WEEKS, DOESNT LIKE HOW IT MAKES HIM FEEL.
--- NOTE | 2019-03-22 12:06 | NUR ---
PT RESTING QUIETLY ON STRETCHER, CALL LIGHT WITHIN REACH, WATCHING TV, NO CHEST PAIN, NO ABDOMINAL PAIN AT THIS TIME
[2019-03-22 12:31] LABS: URINE BILIRUBIN - DIPSTICK NEGATIVE (NEGATIVE); URINE BLOOD DIPSTICK NEGATIVE (NEGATIVE); URINE COLOR YELLOW; URINE GLUCOSE - DIPSTICK >=1000 mg/dL (NEGATIVE); URINE KETONE NEGATIVE (NEGATIVE); URINE LEUK ESTERASE NEGATIVE (NEGATIVE); URINE NITRITE - DIPSTICK NEGATIVE (Negative); URINE PH 6.5 (4.5-8.0); URINE PROTEIN - DIPSTICK NEGATIVE (NEG-TRACE); URINE SPECIFIC GRAVITY <=1.005; URINE UROBILINOGEN - DIPSTICK 0.2 E.U./dL (0.2)
[2019-03-22 12:34] LABS: ALBUMIN 4.2 g/dL (3.2-5.0); ALKALINE PHOSPHATASE 133 u/l (38-126); BUN 22 mg/dL (9-20); BUN/CREATININE RATIO 18 (12-20 (CALC)); CARBON DIOXIDE 28 mmol/l (22-30); CHLORIDE 97 mmol/l (95-108); CREATININE 1.2 mg/dL (0.7-1.3); GFR > 60 ML/MIN (>=60 (CALC)); GFR FOR AFR.AMER. > 60 ML/MIN (>=60 (CALC)); LIPASE 147 u/l (23-300); SGOT/AST 27 u/l (17-59); SODIUM 134 mmol/l (137-146); TOTAL PROTEIN 7.4 g/dL (6.3-8.2)
[2019-03-22 12:47] LABS: IMMATURE GRANULOCYTES 0.2 % (0.0-5.0); MEAN CELL VOLUME 84.2 fL CALC (80.0-100.0); MEAN CORPUSCULAR HGB CONC 34.5 g/L CALC (32.0-36.0); NEUT# 2.87 thou/uL (1.82-7.42); RED BLOOD COUNT 5.2 mill/uL (4.70-6.10); RED CELL DISTRI WIDTH 13.1 % (11.5-15.5)
[2019-03-22 12:57] LABS: HEMATOCRIT 43.8 % (39.0-50.0); HEMOGLOBIN 15.1 g/dl (14.0-18.0)
[2019-03-22 13:21] LABS: ANION GAP 15 (6-22 (CALC)); BILIRUBIN, TOTAL 0.5 mg/dL (0.0-1.4)
[2019-03-22 13:22] LABS: POTASSIUM 6.2 mmol/l (3.5-5.1)
--- NOTE | 2019-03-22 14:18 | NUR ---
PT RESTING QUIETLY ON STRETCHER, INSULIN DRIP INFUSING. PT WATCHING TV, STATES NOW THAT HE HASNT HAD ANY OF HIS DIABETIC MEDICATIONS FOR OVER A MONTH. HE JUST DIDNT WANT TO TELL THE TRUTH. EXPLAINED RISKS OF NOT TAKING MEDICATIONS TO PT. PT DID NOT APPEAR TO BE VERY INTERESTED. STATES HE WANTS A INSULIN PUMP SO HE DOESNT HAVE TO WORRY ABOUT IT AT ALL.
--- NOTE | 2019-03-22 15:02 | NUR ---
PT ALERT/ORIENTED X3, DENIES ANY CHEST PAIN SINCE ARRIVAL.
--- NOTE | 2019-03-22 16:00 | NUR ---
AFTER ACCUCHECK OF 127, NOTIFIED, INSULIN DRIP STOPPED. VSS, PT RESTING WATCHING TV.
[2019-03-22 18:02] VITALS: BP 154/80
--- NOTE | 2019-03-22 18:07 | NUR ---
PT REPORT GIVEN TO FLOOR AND PT TAKEN TO MED SURG PER W/C
--- NOTE | 2019-03-22 18:10 | NUR ---
PT TO ROOM VIA WC ACCOMPANIED BY STAFF; AMBULATORY TO BED WITH STAND BY ASSIST; PT A/O X3; NO COMPLAINTS OR CONCERNS VOICED; VS AND WT OBTAINED; PT ORIENTED TO ROOM AND CALL SYSTEM; WILL CONTINUE TO MONITOR.
--- NOTE | 2019-03-22 20:15 | NUR ---
PATIENT A/OX3, NO C/O PAIN, NO S/S RESP DISTRESS, PATIENT BLOOD GLUCOSE 249, WILL TREAT PATIENT BLOOD GLUCOSE PER MD ORDERS, WILL CONTINUE TO MONITOR PATIENT HOURLY ROUNDING,CALL LIGHT WITHIN REACH
--- NOTE | 2019-03-22 23:11 | NUR ---
PATIENT A/O, NO C/O PAIN, NO S/S RESP DISTRESS, WILL CONTINUE TO MONITOR PATIENT HOURLY ROUNDING, CALL LIGHT WITHIN REACH
[2019-03-22 23:22] VITALS: BP 152/88
--- NOTE | 2019-03-23 | NUR ---
PATIENT A/OX3, NO C/O PAIN, NO S/S RESP DISTRESS, PATIENT REQUEST TO GO OUTSIDE TO SMOKE, NOTIFIED MD TO REQUEST NICOTINE PATCH, WILL CONTINUE TO MONITOR PATIENT HOURLY ROUNDING, CALL LIGHT WITHIN REACH
[2019-03-23 03:20] VITALS: BP 106/67
--- NOTE | 2019-03-23 04:57 | NUR ---
PATIENT RESTING IN BED, NO S/S RESP DISTRESS, NO S/S PAIN, PATIENT IS NORMAL SINUS RHYTHM ON THE MONITOR, WILL CONTINUE TO MONITOR PATIENT HOURLY ROUNDING, CALL LIGHT WITHIN REACH
[2019-03-23 05:16] LABS: HEMATOCRIT 39.8 % (39.0-50.0); IMMATURE GRANULOCYTES 0.2 % (0.0-5.0); MEAN CORPUSCULAR HGB 29.5 pG CALC (26.0-32.0); MEAN CORPUSCULAR HGB CONC 35.2 g/L CALC (32.0-36.0); NEUT# 2.01 thou/uL (1.82-7.42); RED BLOOD COUNT 4.74 mill/uL (4.70-6.10)
[2019-03-23 05:30] LABS: ANION GAP 12 (6-22 (CALC)); BUN 18 mg/dL (9-20); BUN/CREATININE RATIO 19 (12-20 (CALC)); CARBON DIOXIDE 25 mmol/l (22-30); CHLORIDE 105 mmol/l (95-108); CREATININE 0.9 mg/dL (0.7-1.3); GFR > 60 ML/MIN (>=60 (CALC)); GFR FOR AFR.AMER. > 60 ML/MIN (>=60 (CALC)); MAGNESIUM 1.8 mg/dL (1.6-2.3); POTASSIUM 3.8 mmol/l (3.5-5.1); SODIUM 138 mmol/l (137-146)
[2019-03-23 07:35] VITALS: BP 129/78
--- NOTE | 2019-03-23 07:35 | NUR ---
REPORT RECIEVED FROM YESSENIA JORDAN. PT RESTING IN BED, ALERT AND ORIENTED. RESPIRATIONS EVEN AND UNLABORED LUNGS SOUND COARSE IN THE LOWER LUNG FEILDS. PEDAL PULSES WEAK. #18 LAC PATENT AND APPEARS HEALTHY. TELE IN PLACE. CALL PRETTY WITHIN REACH. WILL CONTINUE TO MONITOR.
[2019-03-23 11:17] VITALS: BP 134/79
[2019-03-23] MEDS ORDERED: OXYCODONE30 MG PO (11:20)
[2019-03-23] MEDS ORDERED: OXYMORPHONE HYD10 M1 PO (11:22)
--- NOTE | 2019-03-23 12:00 | NUR ---
PT AMBULATING IN ROOM. RESPIRATIONS EVEN AND UNLABORED ON RA. NO S/S OF DISTRESS AT THIS TIME. SAFETY PRECAUTIONS IN PLACE. WILL CONTINUE TO MONITOR.
[2019-03-23 15:53] VITALS: BP 153/93
[2019-03-23 17:12] LABS: HEMATOCRIT 39.5 % (39.0-50.0); HEMOGLOBIN 13.8 g/dl (14.0-18.0); MEAN CELL VOLUME 83.5 fL CALC (80.0-100.0); MEAN CORPUSCULAR HGB 29.2 pG CALC (26.0-32.0); MEAN CORPUSCULAR HGB CONC 34.9 g/L CALC (32.0-36.0); RED BLOOD COUNT 4.73 mill/uL (4.70-6.10)
[2019-03-23 18:53] VITALS: BP 125/73
--- NOTE | 2019-03-23 21:26 | NUR ---
PT BLOOD SUGAR 548 NOTIFIED NEW ORDERS OBTAINED TO GIVE PT 8 UNITS OF NOVOLOG.
--- NOTE | 2019-03-23 22:56 | NUR ---
PT EDUCATED ON EMS IV SITE EXPIRATION AND PLAN TO START A NEW IV SITE, PT AGREED. NEW IV STATED #20 RFA, PATENT AND APPEARS HEALTHY, PT TOLERATED WELL. EMS SITE #18 LAC REMOVED.
--- NOTE | 2019-03-24 00:20 | NUR ---
PT RESTING IN BED. NO S/S OF DISTRESS AT THIS TIME.
[2019-03-24 00:37] VITALS: BP 119/68
--- NOTE | 2019-03-24 03:29 | NUR ---
PT WATCHING TV; DENIES PAIN OR DISCOMFORT; CALL PRETTY WITHIN REACH; WILL CONTINUE TO MONITOR.
[2019-03-24 03:42] VITALS: BP 122/64
--- NOTE | 2019-03-24 04:22 | NUR ---
PT PULLED IV OUT TURNING IN BED; CATH TIP INTACT; PRESSURE DRSG APPLIED; 3 UNSUCCESSFUL ATTEMPTS AT IV ACCESS BY NURSE; PT DENIES PAIN OR DISCOMFORT; CALL PRETTY WITHIN REACH; WILL CONTINUE TO MONITOR.
[2019-03-24 04:52] LABS: BUN 22 mg/dL (9-20); BUN/CREATININE RATIO 17 (12-20 (CALC)); CARBON DIOXIDE 25 mmol/l (22-30); CHLORIDE 98 mmol/l (95-108); CREATININE 1.3 mg/dL (0.7-1.3); GFR 58 ML/MIN (>=60 (CALC)); GFR FOR AFR.AMER. > 60 ML/MIN (>=60 (CALC)); SODIUM 134 mmol/l (137-146)
[2019-03-24 05:04] LABS: ANION GAP 16 (6-22 (CALC)); POTASSIUM 4.6 mmol/l (3.5-5.1)
--- NOTE | 2019-03-24 06:44 | NUR ---
PT IS RELAXING IN BED WITH NO DISTRESS NOTED. IV SITE IS FREE FROM REDNESS OR EDEMA.
[2019-03-24 08:00] VITALS: BP 143/82
[2019-03-24 11:28] VITALS: BP 135/82
[2019-03-24] MEDS ORDERED: ADVAIR DISK1 INH (11:54)
[2019-03-24] MEDS ORDERED: ZITHROMAX250 MG PO (11:54)
[2019-03-24] MEDS ORDERED: NOVOLOG FL100 UNIT/M SC (11:55)
== END 2019-03-24 13:24 | disposition home or self-care (01) | DRG 639 ==
LOC: ED 11:07 → ED-I 14:37 → ED 15:07 → ED-I 15:08 → MS2 15:08
PROVIDERS: Family Medicine; Nurse Practitioner Family; ADMIT Internal Medicine; ATTEND Internal Medicine
DX: E11.65 Type 2 diabetes mellitus with hyperglycemia (principal); E87.5 Hyperkalemia; J40 Bronchitis, not specified as acute or chronic; R91.1 Solitary pulmonary nodule; I10 Essential (primary) hypertension; E78.5 Hyperlipidemia, unspecified; E11.42 Type 2 diabetes mellitus with diabetic polyneuropathy; F17.210 Nicotine dependence, cigarettes, uncomplicated; E11.649 Type 2 diabetes mellitus with hypoglycemia without coma; T38.3X6A Underdosing of insulin and oral hypoglycemic [antidiabetic] drugs, initial encounter; Z87.820 Personal history of traumatic brain injury; Z91.128 Patient's intentional underdosing of medication regimen for other reason; Z79.4 Long term (current) use of insulin
CPT/HCPCS: J1650; Q9967

== ENCOUNTER 2019-03-25 04:40 | Observation (INO) | payer MEDICARE, MEDICAID ==
[~2019-03-25] VITALS: Ht 172.7 cm; Wt 70.0 kg
[~2019-03-25 04:40] MED LIST changes: +ADVAIR DISK1 INH; +NOVOLOG FL100 UNIT/M SC; +OXYCODONE30 MG PO; +OXYMORPHONE HYD10 M1 PO
--- NOTE | 2019-03-25 04:40 | NUR ---
TO ROOM 12
--- NOTE | 2019-03-25 05:06 | NUR ---
A/O M WITH W/D SKIN C/O TANA EPIGASTRIC PAINS AND COUGH ST WITHOUT ECTOPY NOR ST CHANGES
[2019-03-25 06:01] LABS: ALBUMIN 4.3 g/dL (3.2-5.0); ALKALINE PHOSPHATASE 77 u/l (38-126); AMYLASE 42 u/l (30-110); ANION GAP 17 (6-22 (CALC)); BUN 20 mg/dL (9-20); BUN/CREATININE RATIO 23 (12-20 (CALC)); CARBON DIOXIDE 25 mmol/l (22-30); CHLORIDE 97 mmol/l (95-108); CREATININE 0.9 mg/dL (0.7-1.3); GFR > 60 ML/MIN (>=60 (CALC)); GFR FOR AFR.AMER. > 60 ML/MIN (>=60 (CALC)); LIPASE 65 u/l (23-300); POTASSIUM 3.8 mmol/l (3.5-5.1); SGOT/AST 27 u/l (17-59); SODIUM 136 mmol/l (137-146); TOTAL PROTEIN 7.4 g/dL (6.3-8.2)
[2019-03-25 06:08] LABS: HEMATOCRIT 41.4 % (39.0-50.0); HEMOGLOBIN 14.2 g/dl (14.0-18.0); IMMATURE GRANULOCYTES 0.4 % (0.0-5.0); MEAN CELL VOLUME 85.4 fL CALC (80.0-100.0); MEAN CORPUSCULAR HGB 29.3 pG CALC (26.0-32.0); MEAN CORPUSCULAR HGB CONC 34.3 g/L CALC (32.0-36.0); NEUT# 9.48 thou/uL (1.82-7.42); RED BLOOD COUNT 4.85 mill/uL (4.70-6.10); RED CELL DISTRI WIDTH 13.1 % (11.5-15.5)
--- NOTE | 2019-03-25 06:10 | NUR ---
PT REQUESTS LIGHTS OUT AND GOES TO SLEEP.W/D SKIN SR WITHOUT ECTOPY HAS COMPLETED NEB TX VERY INFREQ PRESS MANAGER COUGH
[2019-03-25 06:17] LABS: BILIRUBIN, TOTAL 1.2 mg/dL (0.0-1.4)
[2019-03-25 06:40] LABS: URINE BILIRUBIN - DIPSTICK NEGATIVE (NEGATIVE); URINE BLOOD DIPSTICK NEGATIVE (NEGATIVE); URINE COLOR YELLOW; URINE GLUCOSE - DIPSTICK 500 mg/dL (NEGATIVE); URINE KETONE NEGATIVE (NEGATIVE); URINE LEUK ESTERASE TRACE (NEGATIVE); URINE NITRITE - DIPSTICK NEGATIVE (Negative); URINE PH 6.5 (4.5-8.0); URINE PROTEIN - DIPSTICK NEGATIVE (NEG-TRACE); URINE SPECIFIC GRAVITY <=1.005; URINE UROBILINOGEN - DIPSTICK 0.2 E.U./dL (0.2)
[2019-03-25 06:45] LABS: BARBITURATES NEGATIVE (NEGATIVE); COCAINE POSITIVE (NEGATIVE); METHADONE NEGATIVE (NEGATIVE); OXCYCODONE NEGATIVE (NEGATIVE); TETRAHYDROCANNABIONOL NEGATIVE (NEGATIVE); TRICYLIC ANTIDEPRESSANTS NEGATIVE (NEGATIVE)
--- NOTE | 2019-03-25 07:00 | NUR ---
CARE ASSUSED, SPOKE WITHPT REGAIG RE CHECK ACCU CHECK, DIETORDER AND PLANNED ADMISSION, VERBALIZES UNDERSTANDING, CALL PRETTY WITHIN REACH.
--- NOTE | 2019-03-25 07:54 | NUR ---
MEAL TRAY SERVED, BED ASSIGNMENT REC'D ATTEMPTED TO CALL REPORT WITH NO ANSWER, PT CALLS ASKING ABOUT IV ACCESS PLACEMENT, EDUCATED REGARDING REASON FOR AC SITE AND POSSIBLE ABILITY TO MOVE ONCE PRIMARY MD ROUNDS. PT VERBALIZES UNDERSTANDING.
--- NOTE | 2019-03-25 08:09 | NUR ---
REPORT CALLED TO ASUNCION SANTIAGO ON MED SURG
--- NOTE | 2019-03-25 08:22 | NUR ---
PT TRANSPORTED TO ROOM [address] [place] [address] WITH TELEMTERY ON PT, ALL BELONGINGS WITH PT AND NURSE ASUNCION AWARE OF ARRIVAL
[2019-03-25 10:05] VITALS: BP 129/78
[2019-03-25 14:48] VITALS: BP 111/64
[2019-03-25 19:00] VITALS: BP 138/82
--- NOTE | 2019-03-25 19:45 | NUR ---
PT SITTING IN BED WATCHING TV. A&O X3. NO DISTRESS NOTED. PT VOICED THE "NEED FOR SNACKS". EXPLAINED TO THE PT THAT THEY WOULD BE PROVIDED SHORTLY. PT VERBALIZED UNDERSTANDING. DISCUSSED POC. ASSESSMENT COMPLETED. CALL LIGHT IN REACH, CONTINUE TO MONITOR
[2019-03-25 23:52] VITALS: BP 132/83
[2019-03-26 03:07] VITALS: BP 140/87
--- NOTE | 2019-03-26 03:40 | NUR ---
PT SLEEPING IN BED. NO DISTRESS NOTED. RESP EVEN AND UNLABORED. CONTINUE TO MONITOR.
[2019-03-26 08:00] VITALS: BP 106/68
--- NOTE | 2019-03-26 08:00 | NUR ---
PT ALERT AND ORIENTED X 3. LUNGS CLEAR, RA. PT SHOWERED THIS MORNING, SEEN AMBULATING AROUND ROOM, NO COMPLAINTS, NO DISTRESS.
[2019-03-26 11:00] VITALS: BP 118/79
[2019-03-26] MEDS ORDERED: ASPIRIN ADULT L81 M2 PO (13:27)
[2019-03-26] MEDS ORDERED: PANTOPRAZOLE SO40 M1 PO (13:27)
--- NOTE | 2019-03-26 14:18 | NUR ---
PT HAS BEEN DISCHARGED TO HOME. PT VERBALIZED UNDERSTANDING OF DC INSTRUCTIONS, AMBULATES TO LOBBY AFTER REFUSING WHEELCHAIR. PT LEAVES [facility] IN STABLE CONDITION. PT ENCOURAGED TO REDUCE COCAINE USE IN LIGHT OF ITS EFFECT ON HIS HEART, AGREES.
== END 2019-03-26 14:18 | disposition home or self-care (01) ==
LOC: ED 04:40 → ED-I 06:30 → ED 06:50 → MS2 06:51
PROVIDERS: ADMIT Internal Medicine; ATTEND Internal Medicine
DX: R07.2 Precordial pain (principal); E11.65 Type 2 diabetes mellitus with hyperglycemia; F14.10 Cocaine abuse, uncomplicated; I10 Essential (primary) hypertension; E11.40 Type 2 diabetes mellitus with diabetic neuropathy, unspecified; F17.210 Nicotine dependence, cigarettes, uncomplicated; R91.1 Solitary pulmonary nodule; K21.9 Gastro-esophageal reflux disease without esophagitis; Z79.4 Long term (current) use of insulin; Z91.19 Patient's noncompliance with other medical treatment and regimen; Z87.820 Personal history of traumatic brain injury
CPT/HCPCS: G0378

== ENCOUNTER 2019-11-21 13:14 | Emergency (ER) | payer MEDICARE, MEDICAID ==
[~2019-11-21] VITALS: Ht 172.7 cm; Wt 77.0 kg
[~2019-11-21 13:14] MED LIST changes: +ASPIRIN ADULT L81 M2 PO; +PANTOPRAZOLE SO40 M1 PO
[2019-11-21 14:45] LABS: HEMATOCRIT 40.3 % (39.0-50.0); HEMOGLOBIN 13.5 g/dl (14.0-18.0); IMMATURE GRANULOCYTES 0.2 % (0.0-5.0); MEAN CELL VOLUME 85.2 fL CALC (80.0-100.0); MEAN CORPUSCULAR HGB 28.5 pG CALC (26.0-32.0); MEAN CORPUSCULAR HGB CONC 33.5 g/dL CAL (32.0-36.0); NEUT# 2.27 thou/uL (1.82-7.42); RED BLOOD COUNT 4.73 mill/uL (4.70-6.10); RED CELL DISTRI WIDTH 13.3 % (11.5-15.5)
[2019-11-21 15:07] LABS: ALBUMIN 4.2 g/dL (3.2-5.0); ALKALINE PHOSPHATASE 113 u/l (38-126); ANION GAP 14 (6-22 (CALC)); BILIRUBIN, TOTAL 0.6 mg/dL (0.0-1.4); BUN 20 mg/dL (9-20); BUN/CREATININE RATIO 18 (12-20 (CALC)); CARBON DIOXIDE 26 mmol/l (22-30); CHLORIDE 103 mmol/l (95-108); CREATININE 1.1 mg/dL (0.7-1.3); GFR > 60 ML/MIN (>=60 (CALC)); GFR FOR AFR.AMER. > 60 ML/MIN (>=60 (CALC)); MAGNESIUM 2.2 mg/dL (1.6-2.3); POTASSIUM 4.4 mmol/l (3.5-5.1); SGOT/AST 23 u/l (17-59); SODIUM 138 mmol/l (137-146)
[2019-11-21 16:49] LABS: URINE BILIRUBIN - DIPSTICK NEGATIVE (NEGATIVE); URINE BLOOD DIPSTICK NEGATIVE (NEGATIVE); URINE COLOR YELLOW; URINE GLUCOSE - DIPSTICK 100 mg/dL (NEGATIVE); URINE KETONE TRACE mg/dL (NEGATIVE); URINE LEUK ESTERASE NEGATIVE (NEGATIVE); URINE NITRITE - DIPSTICK NEGATIVE (Negative); URINE PH 5.5 (4.5-8.0); URINE PROTEIN - DIPSTICK NEGATIVE (NEG-TRACE); URINE SPECIFIC GRAVITY >=1.030
[2019-11-21] MEDS ORDERED: NEURONTIN300 MG PO (17:05)
[2019-11-21 17:19] VITALS: BP 138/70
== END 2019-11-21 17:21 | disposition home or self-care (01) ==
LOC: ED 13:14
DX: E11.40 Type 2 diabetes mellitus with diabetic neuropathy, unspecified (principal); I10 Essential (primary) hypertension; F14.20 Cocaine dependence, uncomplicated; F17.200 Nicotine dependence, unspecified, uncomplicated; T42.6X6A Underdosing of other antiepileptic and sedative-hypnotic drugs, initial encounter; Z91.138 Patient's unintentional underdosing of medication regimen for other reason; Z79.4 Long term (current) use of insulin; R94.31 Abnormal electrocardiogram [ECG] [EKG]

== ENCOUNTER 2020-07-25 20:36 | Inpatient (IN) | payer MEDICARE, MEDICAID ==
[~2020-07-25] VITALS: Ht 172.7 cm; Wt 66.0 kg
[~2020-07-25 20:36] MED LIST changes: +NEURONTIN300 MG PO
--- NOTE | 2020-07-25 20:45 | NUR ---
PT BROUGHT IMMEDIATELY BACK TO ROOM 16 VIA EMS
[2020-07-25 21:18] LABS: HEMATOCRIT 44.9 % (39.0-50.0); HEMOGLOBIN 15.3 g/dl (14.0-18.0); IMMATURE GRANULOCYTES 0.2 % (0.0-5.0); MEAN CELL VOLUME 82.5 fL CALC (80.0-100.0); MEAN CORPUSCULAR HGB 28.1 pG CALC (26.0-32.0); MEAN CORPUSCULAR HGB CONC 34.1 g/dL CAL (32.0-36.0); NEUT# 5.91 thou/uL (1.82-7.42); RED BLOOD COUNT 5.44 mill/uL (4.70-6.10); RED CELL DISTRI WIDTH 12.5 % (11.5-15.5)
[2020-07-25 21:36] LABS: ALBUMIN 4.3 g/dL (3.2-5.0); ALKALINE PHOSPHATASE 92 u/l (38-126); BILIRUBIN, TOTAL 0.8 mg/dL (0.0-1.4); BUN 25 mg/dL (9-20); CARBON DIOXIDE 29 mmol/l (22-30); CHLORIDE 91 mmol/l (95-108); SGOT/AST 27 u/l (17-59); SODIUM 130 mmol/l (137-146); TOTAL PROTEIN 7.9 g/dL (6.3-8.2)
[2020-07-25 21:39] LABS: ANION GAP 13 (6-22 (CALC)); BUN/CREATININE RATIO 10 (12-20 (CALC)); CREATININE 2.5 mg/dL (0.7-1.3); GFR 27 ML/MIN (>=60 (CALC)); GFR FOR AFR.AMER. 33 ML/MIN (>=60 (CALC)); POTASSIUM 3.3 mmol/l (3.5-5.1)
--- NOTE | 2020-07-26 | NUR ---
TECH NOTED WHAT APPEARRED A RUN OF VTACH AND PT WAS ATTENDED TO IN THE ROOM. PT WAS NS RHYTHM AND DENIED PAIN OR ANY OTHER COMPLICATIONS
--- NOTE | 2020-07-26 01:49 | NUR ---
PT WAS NOTIFIED OF ADMISSION AND REPORT IS CALLED TO [facility].
--- NOTE | 2020-07-26 02:10 | NUR ---
REPORT CALLED TO YESSENIA RUGGIERO
[2020-07-26 02:28] VITALS: BP 127/75
--- NOTE | 2020-07-26 03:30 | NUR ---
PATIENT ADMITTED FROM ER VIA WHEELCHAIR WITH ER STAFF IN ATTENDANCE. PATIENT ADMITTED FOR CHEST PAIN. PATIENT IS ABLE TRANSFER TO BED. AWAKE ALERT AND ORIENTEDX3. PATIENT DENIES PAIN AT THIS TIME. STATES THAT HE DOES TAKEN PAIN MEDS FOR CHRONIC BACK PAIN. PATIENT IS [id number] WAS 480 UPON ARRIVAL TO THE FLOOR. SPOKE WITH DR. LA IN ER AND RECIEVED ORDERS FOR HUMALOG 6UNITS SQ-GIVEN TO LEFT ABD. NO NAUSEA THIS TIME. LOVENOX GIVEN ORDERED. SALINE LOCK TO RAC INTACT AND IVF NS HUNG AND INFUSING AT 75CC/HR. SITE IS HEALTHY AT THIS TIME. TELE MONITOR IN PLACE-SR-93. LUNGS ARE CLEAR. ABD IS SOFT WITH ACTIVE BS. LAST BM WAS 07/24. DENIES ANY PROBLEMS WITH URINATION. NO PERIPHERAL EDEMA-PULSES ARE PALPABLE. ORIENTED PATIENT TO ROOM AND SURROUNDINGS. INSTRUCTED PATIENT ON USE OF NURSE CALL LIGHT SYSTEM, TV REMOTE. AND PHONE. SAFETY PRECAUTIONS REINFORCED. CALL LIGHT IN REACH. WILL CONT TO MONITOR.
[2020-07-26 04:00] VITALS: BP 120/77
--- NOTE | 2020-07-26 04:48 | NUR ---
PATIENT POSITIONED ON RIGHT SIDE WITH EYES CLOSED. RESPS ARE EVEN AND UNLABORED. IVF NS PATENT AIND INFUSING VIA RIGHT AC SITE AT 75CC/HR. TELE MONITOR IN PLACE. CALL LIGHT IN REACH. WILL CONT TO MONITOR.
--- NOTE | 2020-07-26 06:00 | NUR ---
ACCU-CHECK RECHECK AND WAS 508-SPOKE WITH DR RUEDA IN ER AND AN ADDITIONAL 5UNITS OF HUMALOG ORDERED AND GIVEN. PATIENT RESTING IN BED WITH IVF PATENT ANDINFUSING VIA RAC SITE AT 75CC/HR. TELE MONITOR IN PLACE. CALL LIGHT IN REACH. WILL CONT TOO MONITOR.
--- NOTE | 2020-07-26 06:05 | NUR ---
PATIENT RESTING IN BED AT THIS TIME. ACCU-CHECK WAS DONE AND WAS 508. SPOKE WITH DR. STEARNS AND NEW ORDER RECEIVED. PATIENT MEDICATED WITH HUMALOG ANOTHER 6UNITS ORDERED. NO COMPLAINTS AT THIS TIME. IVF PATENT AND INFUSING VIA RAC SITE AT 75CC/HR. TELE MONITOR IN PLACE. CALL LIGHT IN REACH. WILL CONT TO MONITOR.
[2020-07-26 07:35] VITALS: BP 120/75
--- NOTE | 2020-07-26 07:50 | NUR ---
SHIFT CHANGE REPORT, PT AWAKE ALERT AND ORIENTED RESTING IN BED, DENIES PAIN/DISCOMFORT, IVF 0.9NS INFUSING @ 75ML/HR TO SITE N RAC, ALL NEEDS ADDRESSED, CALL PRETTY IN REACH.
[2020-07-26 08:21] LABS: POTASSIUM 3.5 mmol/l (3.5-5.1)
--- NOTE | 2020-07-26 08:29 | NUR ---
ELLYN RECIEVED FROM MITUL IN LAB OF GLUCOSE RESULTING IN [address] HANK HERR.
--- NOTE | 2020-07-26 09:17 | NUR ---
INFORMED OF ORDERES CT, BEING TRANSPORTED OFF UNIT VIA WC AT THIS TIME BY STAFF TO PROCEDURE, ED NOTIFIED OF TELE BEING OFF FOR PROCEDURE.
--- NOTE | 2020-07-26 09:45 | NUR ---
RETURNED FROM PROCEDURE AND SETTLED BACK IN BED, EDUCATED ON COBY HOSE, HOSE APPLIED, TELE MONITOR REPLACED.
[2020-07-26 10:00] VITALS: BP 117/70
[2020-07-26] MEDS ORDERED: PROTONIX40 M2 PO (11:42)
[2020-07-26] MEDS ORDERED: NOVOLOG FL100 UNIT/M SC (11:48)
[2020-07-26] MEDS ORDERED: GLIPIZIDE ER10 M1 PO (11:50)
[2020-07-26] MEDS ORDERED: PERCOCET1 TA4 PO (11:51)
[2020-07-26] MEDS ORDERED: CRESTOR20 MG PO (11:52)
[2020-07-26] MEDS ORDERED: MELOXICAM15 MG PO (11:54)
--- NOTE | 2020-07-26 12:39 | NUR ---
RESTING IN BED AT THIS TIME, ATE MEAL, ALL NEEDS ADDRESSED, NO NEW COMPLAIN, CALL PRETTY IN REACH.
[2020-07-26 15:04] VITALS: BP 115/77
--- NOTE | 2020-07-26 16:00 | NUR ---
SLEEPING, BREATHING EVEN AND NON-LABORED, NO VISIBLE SIGN DISCOMFORT, CALL PRETTY IN REACH.
--- NOTE | 2020-07-26 17:39 | NUR ---
PT GLUCOSE LEVEL NEEDED TO BE ADDRESSED, WHEN NURSE INFORMED PT OF RESULT AND QUANTITY OF INSULIN TO BE GIVEN BASED ON RESULT PT INITIALLY REFUSED STATING THAT WILL HAVE NO EFFECT ON HIM. ADVISED OF SLIDING SCALE POLICY HERE AND ENCOURAGED TO TAKE MED DUE TO MEDICAL CONDITION AND BENEFITS OF TREATING HYPERGLYCEMIA, ALSO ADVISED HE DOES HAVE THE RIGHT TO REFUSE MEDS BUT THIS REFUSAL WOULD NOT BE IN HIS BEST INTEREST, PT THEN ACCEPTED AND MED GIVEN.
[2020-07-26 19:00] VITALS: BP 118/74
--- NOTE | 2020-07-26 22:41 | NUR ---
PATIENT IS ALERT AND ORIENTED X3. ABLE TO MAKE NEEDS KNOWN. REPIRATIONS EASY ON ROOM AIR. ON TELEMETRY SINUR RHYTHM. DENIES PAIN. SKIN WARM AND DRY. VAD #20 RAC INFUSING NORMAL SALINE AT 75 ML/HR. ACCUCHECK THIS EVNING 371. 5 UNITS LISPRO ADMINISTERED SQ. PATIENT VERBALIZED DESIRE TO STAY ONE MORE NIGHT. BED IN LOW POSITION. CALL LIGHT WITHIN REACH
[2020-07-27 00:18] VITALS: BP 126/77
[2020-07-27 04:55] VITALS: BP 113/70
[2020-07-27 05:42] LABS: BUN 24 mg/dL (9-20); BUN/CREATININE RATIO 21 (12-20 (CALC)); CALCULATED LDLCHOLESTEROL 71 mg/dL (62-129 (CALC)); CARBON DIOXIDE 27 mmol/l (22-30); CHLORIDE 98 mmol/l (95-108); CHOLESTEROL HDL RATIO 2.7 (<4.4 (CALC)); CREATININE 1.2 mg/dL (0.7-1.3); GFR > 60 ML/MIN (>=60 (CALC)); GFR FOR AFR.AMER. > 60 ML/MIN (>=60 (CALC)); HDL CHOLESTEROL 54 mg/dL (>=40); HEMATOCRIT 41.7 % (39.0-50.0); MEAN CELL VOLUME 83.6 fL CALC (80.0-100.0); MEAN CORPUSCULAR HGB 28.1 pG CALC (26.0-32.0); MEAN CORPUSCULAR HGB CONC 33.6 g/dL CAL (32.0-36.0); RED BLOOD COUNT 4.99 mill/uL (4.70-6.10); RED CELL DISTRI WIDTH 12.5 % (11.5-15.5); SODIUM 131 mmol/l (137-146); TOTAL TRIGLYCERIDES 96 mg/dl (30-149); VLDL CHOLESTROL 19 mg/dl (8-62 (CALC))
[2020-07-27 05:48] LABS: ANION GAP 11 (6-22 (CALC)); POTASSIUM 4.7 mmol/l (3.5-5.1); TOTAL CHOLESTEROL 144 mg/dl (0-199)
[2020-07-27 07:15] VITALS: BP 118/70
--- NOTE | 2020-07-27 07:15 | NUR ---
PATIENT LAYING IN BED AT THIS TIME. MANAGER SUPPLIER DONE SEE INTERVENTIONS. PATIENT DENIES ANY PAIN AT THIS TIME. PATIENT PRESENTS NO EDEMA LUNG SOUNDS ARE CLEAR THOUGHOUT ALL LUNG GARCIA AT THIS TIME. PATIENT ON TELE AND BEING MONITORED BY ED. SIDERAILS ARE UP CALL LIGHT IS WITHIN REACH.
[2020-07-27 10:40] VITALS: BP 122/74
--- NOTE | 2020-07-27 11:54 | NUR ---
PATIENT RESTING IN BED AT THIS TIME. PATIENT DENIES ANY NEEDS AND OR PAIN SIDERAILS ARE UP X2 CALL LIGHT IS WITHIN REACH.
[2020-07-27] MEDS ORDERED: HUMULIN 70/30 SC (13:07)
[2020-07-27] MEDS ORDERED: MIRTAZAPINE15 MG PO (13:23)
[2020-07-27] MEDS ORDERED: NOVOLIN R100 UNIT/1 SC (13:24)
[2020-07-27] MEDS ORDERED: LANTUS100 UNIT SC (13:25)
--- NOTE | 2020-07-27 14:26 | NUR ---
PATIENT D/C AT THIS TIME. PATIENT VERBALIZES UNDERSTANDING OF D/C AT THIS TIME.
== END 2020-07-27 14:26 | disposition home health service (06) | DRG 313 ==
LOC: ED 20:36 → ED-I 07-26 00:46 → ED 07-26 01:15 → MS2 07-26 01:16
PROVIDERS: Family Medicine; Nurse Practitioner; ADMIT Internal Medicine; ATTEND Internal Medicine
DX: R07.9 Chest pain, unspecified (principal); N17.9 Acute kidney failure, unspecified; E87.1 Hypo-osmolality and hyponatremia; E11.65 Type 2 diabetes mellitus with hyperglycemia; E11.40 Type 2 diabetes mellitus with diabetic neuropathy, unspecified; R91.1 Solitary pulmonary nodule; I10 Essential (primary) hypertension; E78.5 Hyperlipidemia, unspecified; E87.6 Hypokalemia; F17.210 Nicotine dependence, cigarettes, uncomplicated; Z87.820 Personal history of traumatic brain injury; Z79.4 Long term (current) use of insulin; Z20.822 Contact with and (suspected) exposure to COVID-19
CPT/HCPCS: J1650

== ENCOUNTER 2020-08-15 11:24 | Inpatient (IN) | payer MEDICARE, MEDICAID ==
[~2020-08-15] VITALS: Ht 172.7 cm; Wt 60.0 kg
[~2020-08-15 11:24] MED LIST changes: +GLIPIZIDE ER10 M1 PO; +LANTUS100 UNIT SC; +MELOXICAM15 MG PO; +MIRTAZAPINE15 MG PO; +NOVOLIN R100 UNIT/1 SC; +PERCOCET1 TA4 PO; +PROTONIX40 M2 PO
--- NOTE | 2020-08-15 11:24 | NUR ---
PT ARRIVED BY EMS
--- NOTE | 2020-08-15 11:36 | NUR ---
CRITICAL LAB RESULTS RECEIVED FOR POTASSIUM, GLUCOSE, AND BETA HYDROXY, DR RAY NOTIFIED.
[2020-08-15 11:57] LABS: IMMATURE GRANULOCYTES 0.3 % (0.0-5.0); MEAN CELL VOLUME 82.1 fL CALC (80.0-100.0); MEAN CORPUSCULAR HGB 28.1 pG CALC (26.0-32.0); MEAN CORPUSCULAR HGB CONC 34.2 g/dL CAL (32.0-36.0); NEUT# 5.05 thou/uL (1.82-7.42); RED BLOOD COUNT 6.55 mill/uL (4.70-6.10); RED CELL DISTRI WIDTH 12.9 % (11.5-15.5)
[2020-08-15 11:58] LABS: HEMATOCRIT 53.8 % (39.0-50.0); HEMOGLOBIN 18.4 g/dl (14.0-18.0)
[2020-08-15 12:12] LABS: ALBUMIN 4.8 g/dL (3.2-5.0); ALKALINE PHOSPHATASE 121 u/l (38-126); BUN 41 mg/dL (9-20); BUN/CREATININE RATIO 23 (12-20 (CALC)); CHLORIDE 88 mmol/l (95-108); CREATININE 1.8 mg/dL (0.7-1.3); GFR 40 ML/MIN (>=60 (CALC)); GFR FOR AFR.AMER. 48 ML/MIN (>=60 (CALC)); SGOT/AST 18 u/l (17-59); SODIUM 131 mmol/l (137-146); TOTAL PROTEIN 8.4 g/dL (6.3-8.2)
[2020-08-15 12:23] LABS: MYOGLOBIN 59 ng/mL (0 - 121)
[2020-08-15 12:32] LABS: ANION GAP 30 (6-22 (CALC)); CARBON DIOXIDE 19 mmol/l (22-30); POTASSIUM 5.6 mmol/l (3.5-5.1)
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
--- NOTE | 2020-08-15 13:54 | NUR ---
INSULIN GIVEN AFTER CONFIRMATION OF BG BY LAB. EDU GIVEN ON INSULIN TO PT AND THE IMPORTANCE OF COMPLYING
--- NOTE | 2020-08-15 14:45 | NUR ---
PT RESTING WITH EYES CLOSED
--- NOTE | 2020-08-15 15:50 | NUR ---
GAVE REPORT TO JOHN
[2020-08-15 16:08] LABS: CREATININE 1.8 mg/dL (0.7-1.3)
--- NOTE | 2020-08-15 16:09 | NUR ---
PT TRANSPORTED TO ICU STABLE AND IN NO DISTRESS BY Nicolette EVERETT Admission Note Report Given to: JOHN Transported by: Wheelchair X Stretcher Transported with: X Nurse Transporter X Patent IV O2 X Commercial Lines Manager Location: X ICU [facility]
--- NOTE | 2020-08-15 16:10 | NUR ---
PATIENT RECIEVED FROM ED. PATIENT IS ASSESSED. VITALS ARE STABLE. BLOOD SUAGR 435. INSULIN DRIP REMAINS AT 5UNITS/ML. WILL CONTINUE TO MONITOR.
[2020-08-15 16:12] LABS: POTASSIUM 3.7 mmol/l (3.5-5.1)
[2020-08-15 16:19] VITALS: BP 132/80
--- NOTE | 2020-08-15 18:16 | NUR ---
PATIENT BLOOD SUGAR 320, WILL CONTINUE ON 4UNITS/ML PER PROTOCOL ORDERS.
[2020-08-15 19:00] VITALS: BP 126/67
--- NOTE | 2020-08-15 19:00 | NUR ---
RECEIVED REPORT. ON INSULIN DRIP AND D51/2 AT 125ML/HR-TOLERATING WELL. ALERT. COOPERATIVE. JUST FINISHED DINNER TRAY (CLEAR LIQUIDS). DENIES PAIN OR S/S HYPERGLYCEMIA
[2020-08-15 19:27] LABS: ANION GAP 17 (6-22 (CALC)); BUN 34 mg/dL (9-20); BUN/CREATININE RATIO 26 (12-20 (CALC)); CARBON DIOXIDE 24 mmol/l (22-30); CHLORIDE 98 mmol/l (95-108); CREATININE 1.3 mg/dL (0.7-1.3); GFR 58 ML/MIN (>=60 (CALC)); GFR FOR AFR.AMER. > 60 ML/MIN (>=60 (CALC)); POTASSIUM 3.7 mmol/l (3.5-5.1); SODIUM 135 mmol/l (137-146)
[2020-08-15 19:31] LABS: URINE BILIRUBIN - DIPSTICK NEGATIVE (NEGATIVE); URINE BLOOD DIPSTICK NEGATIVE (NEGATIVE); URINE COLOR YELLOW; URINE GLUCOSE - DIPSTICK >=1000 mg/dL (NEGATIVE); URINE KETONE 15 mg/dL (NEGATIVE); URINE LEUK ESTERASE NEGATIVE (NEGATIVE); URINE PH 5.5 (4.5-8.0); URINE PROTEIN - DIPSTICK NEGATIVE (NEG-TRACE); URINE SPECIFIC GRAVITY 1.025; URINE UROBILINOGEN - DIPSTICK 0.2 E.U./dL (0.2)
[2020-08-15 19:32] LABS: URINE NITRITE - DIPSTICK NEGATIVE (Negative)
[2020-08-15 20:00] VITALS: BP 131/75
--- NOTE | 2020-08-15 20:00 | NUR ---
TITRATING INSULIN PER RX. PT COOPERATIVE
--- NOTE | 2020-08-15 21:00 | NUR ---
DOZING AT INTERVALS
[2020-08-15 22:00] VITALS: BP 169/80
--- NOTE | 2020-08-15 22:21 | NUR ---
C/O WAS HUNGRY-REQUESTING FOOD. ON CLEAR LIQUID DIET. NOT INTERESTED BUT SETTLED FOR CHICKEN BROTH AND ICED TEA. WATCHING TV. ACCUCHEK TRENDING DOWN
[2020-08-15 23:00] VITALS: BP 154/85
--- NOTE | 2020-08-15 23:24 | NUR ---
LAB HERE FOR BLOOD DRAW. PT REPORTS HE THINKS HE WILL CALL IT A NIGHT AND GO TO SLEEP
[2020-08-15 23:49] LABS: ANION GAP 13 (6-22 (CALC)); BUN 27 mg/dL (9-20); BUN/CREATININE RATIO 25 (12-20 (CALC)); CARBON DIOXIDE 27 mmol/l (22-30); CHLORIDE 98 mmol/l (95-108); CREATININE 1.1 mg/dL (0.7-1.3); GFR > 60 ML/MIN (>=60 (CALC)); GFR FOR AFR.AMER. > 60 ML/MIN (>=60 (CALC)); POTASSIUM 3.7 mmol/l (3.5-5.1); SODIUM 134 mmol/l (137-146)
[2020-08-16] VITALS (15 sets, daily range): BP systolic 109–143; BP diastolic 56–88
--- NOTE | 2020-08-16 00:20 | NUR ---
A. GAP CLOSED AND GLUCOSE 221. TO INITATE LONG LASTING INSULIN AND D/C DRIP IN 1 HOUR. RX FAXED TO [facility]. AWAITING ACCESS TO MEDICATION RX
--- NOTE | 2020-08-16 00:40 | NUR ---
CALLED FOR INSULIN ORDER. PHARMACIST SAID THEY NEED CLARIFICATION TO PROCESS RX WI ON INSULIN DRIP. EXPLAINED PREVIOUS RX STATES TO CHANEGE TO LONG ACTING INSULIN ONCE LABS INDICATE AND THEY HAVE. RX TO BE PROCESSED ONCE PREVIOUS RX RESENT TO CARDINAL. AWAITING MEDICATION TO BE PROFILED
--- NOTE | 2020-08-16 02:39 | NUR ---
INSULIN DRIP OFF. NS INFUSING RX. EYES CLOSED. TV OFF AND LIGHTS OUT
--- NOTE | 2020-08-16 04:17 | NUR ---
BEDRESTING. RESP EVEN AND NON;ABORED. N/C VOICED
--- NOTE | 2020-08-16 06:00 | NUR ---
AWAKE. ASKING FOR EGGS AND OATMEAL. REMINDED OF LIQUID DIET. TALKATIVE. ORIENTED. N/C AT THIS TIME
[2020-08-16 06:20] LABS: MEAN CORPUSCULAR HGB 28.5 pG CALC (26.0-32.0); MEAN CORPUSCULAR HGB CONC 34.8 g/dL CAL (32.0-36.0); RED BLOOD COUNT 5.05 mill/uL (4.70-6.10); RED CELL DISTRI WIDTH 12.5 % (11.5-15.5)
[2020-08-16 06:36] LABS: HEMATOCRIT 41.4 % (39.0-50.0); HEMOGLOBIN 14.4 g/dl (14.0-18.0)
[2020-08-16 06:47] LABS: ANION GAP 10 (6-22 (CALC)); BUN 23 mg/dL (9-20); BUN/CREATININE RATIO 24 (12-20 (CALC)); CALCULATED LDLCHOLESTEROL 90 mg/dL (62-129 (CALC)); CARBON DIOXIDE 26 mmol/l (22-30); CHLORIDE 99 mmol/l (95-108); CHOLESTEROL HDL RATIO 3.5 (<4.4 (CALC)); GFR > 60 ML/MIN (>=60 (CALC)); GFR FOR AFR.AMER. > 60 ML/MIN (>=60 (CALC)); HDL CHOLESTEROL 43 mg/dL (>=40); MAGNESIUM 2.2 mg/dL (1.6-2.3); POTASSIUM 3.9 mmol/l (3.5-5.1); SODIUM 131 mmol/l (137-146); TOTAL CHOLESTEROL 150 mg/dl (0-199); TOTAL TRIGLYCERIDES 83 mg/dl (30-149); VLDL CHOLESTROL 17 mg/dl (8-62 (CALC))
--- NOTE | 2020-08-16 07:33 | NUR ---
REPORT RECEIVED FROM YESSENIA RIVAS. PT RESTING IN BED ON RIGHT SIDE; ALERT AND ORIENTED X 3. C/O PAIN TO TONGUE; SORE NOTED TO LEFT SIDE OF TONGUE. RESPIRATIONS EVEN AND UNLABORED ON ROOM AIR. SCLERA ARE JAUNDICE; SKIN INTACT. LUNGS CLEAR. NORMAL SALINE INFUSING WITHOUT DIFFICULTY; IV SITE APPEARS HEALTHY. ACCU CHECK 163; 1 UNIT OF INSULIN GIVEN. POC REVIEWED; PT ENCOURAGED TO VERBALIZE CONCERNS; STATES UNDERSTANDING. SAFETY MEASURES IN PLACE. CALL LIGHT WITHIN REACH.
--- NOTE | 2020-08-16 08:48 | NUR ---
DR. MCKINNEY AT BEDSIDE.
--- NOTE | 2020-08-16 11:30 | NUR ---
PT SITTING UP IN BED FOR LUNCH; ATE 100%. IV FLUIDS NOW INFUSING AT 50 ML/HR. PT REQUESTING SHOWER; NOTIFIED OF PLAN TO TRANSFER TO [facility] WHERE HE MAY USE SHOWER; OFFERED WASH CLOTHS TO WASH FACE FOR NOW. NO OTHER REQUESTS OR CONCERS AT THIS TIME. USING URINAL TO VOID. CALL LIGHT WITHIN REACH.
--- NOTE | 2020-08-16 13:10 | NUR ---
REPORT GIVEN TO YESSENIA ARGUETA. PT TRANSPORTED TO [facility] ROOM 261 VIA WHEELCHAIR IN STABLE CONDITION.
--- NOTE | 2020-08-16 13:31 | NUR ---
PT RECEIVED TO ROOM 261 FROM ICU, ARRIVES BY WHEELCHAIR. PT IS ALERT AND ORIENTED X 3. LUNGS CLEAR, RA. PT DID WANT TO TAKE A SHOWER, SO THIS WAS SET UP FOR HIM.
--- NOTE | 2020-08-16 18:01 | NUR ---
PT REMAINS BEFORE, RESTS IN THE BED IN NO DISTRESS. PT OFFERS NO COMPLAINTS, NO DISTRESS NOTED.
--- NOTE | 2020-08-16 19:53 | NUR ---
SCHEDULED MEDICATIONS AND PRN MEDICATION ADMINISTERED, SEE E-MAR. PT DENIES ANY NEEDS AT THIS TIME. PLAN OF CARE REVIEWED, PT DENIES QUESTIONS. ITEMS WITHIN REACH, BED LOCKED IN LOW POSITION W/ BEDRAILS UP X2. CALL PRETTY WITHIN REACH, AGREES TO CALL PRN.
--- NOTE | 2020-08-17 | NUR ---
PT LAYING IN BED WITH EYES CLOSED, APPEARS TO BE SLEEPING, APPEARS COMFORTABLE AND IN NO DISTRESS. RESPIRATIONS REGULAR AND UNLABORED. ITEMS REMAIN WITHIN REACH, CALL PRETTY REMAINS WITHIN REACH. BED REMAINS LOCKED AND IN LOW POSITION WITH BEDRAILS UP X2. WILL CONTINUE TO MONITOR.
[2020-08-17 04:00] VITALS: BP 116/70
--- NOTE | 2020-08-17 04:52 | NUR ---
PT RESTING IN BED, NO SIGNS OF DISTRESS NOTED, RESP EVEN AND UNLABORED. PT VOICES NO NEEDS OR COMPLAINTS AT THIS TIME. CALL LIGHT IN REACH, CONTINUE TO MONITOR.
[2020-08-17 06:06] LABS: HEMATOCRIT 38.5 % (39.0-50.0); HEMOGLOBIN 13.2 g/dl (14.0-18.0); IMMATURE GRANULOCYTES 0.2 % (0.0-5.0); MEAN CELL VOLUME 83.2 fL CALC (80.0-100.0); MEAN CORPUSCULAR HGB 28.5 pG CALC (26.0-32.0); MEAN CORPUSCULAR HGB CONC 34.3 g/dL CAL (32.0-36.0); NEUT# 2.95 thou/uL (1.82-7.42); RED BLOOD COUNT 4.63 mill/uL (4.70-6.10); RED CELL DISTRI WIDTH 12.4 % (11.5-15.5)
[2020-08-17 06:24] LABS: ANION GAP 7 (6-22 (CALC)); BUN 18 mg/dL (9-20); BUN/CREATININE RATIO 18 (12-20 (CALC)); CARBON DIOXIDE 28 mmol/l (22-30); CHLORIDE 99 mmol/l (95-108); GFR > 60 ML/MIN (>=60 (CALC)); GFR FOR AFR.AMER. > 60 ML/MIN (>=60 (CALC)); MAGNESIUM 2.3 mg/dL (1.6-2.3); POTASSIUM 3.8 mmol/l (3.5-5.1); SODIUM 131 mmol/l (137-146)
[2020-08-17 08:00] VITALS: BP 122/81
--- NOTE | 2020-08-17 09:00 | NUR ---
PT ALERT, ORIENTED X 3. LUNGS CLEAR, RA. PT ANTICIPATES DISCHARGE HOME TODAY. ACCUCHECK COVERAGE PROVIDED, PT ENCOURAGED TO GIVE CLOSE ATTENTION TO HIS DIABETES.
[2020-08-17] MEDS ORDERED: METFORMIN500 M2 PO (10:48)
--- NOTE | 2020-08-17 12:51 | NUR ---
PT HAS BEEN DISCHARGED TO HOME. PT VERBALIZES UNDERSTANDING OF DC INSTRUCTIONS, AMBULATES TO LOBBY WITH STAFF. PT LEAVES [facility] IN STABLE CONDITION, [facility] HAS BEEN CALLED.
== END 2020-08-17 12:39 | disposition home or self-care (01) | DRG 638 ==
LOC: ED 11:24 → ED-I 13:08 → ED 14:22 → ICU 14:23 → MS2 08-16 13:11
PROVIDERS: Emergency Medicine; Nurse Practitioner; ADMIT Internal Medicine; ATTEND Internal Medicine
DX: E11.10 Type 2 diabetes mellitus with ketoacidosis without coma (principal); N17.9 Acute kidney failure, unspecified; E86.0 Dehydration; I10 Essential (primary) hypertension; E78.5 Hyperlipidemia, unspecified; E11.40 Type 2 diabetes mellitus with diabetic neuropathy, unspecified; F17.200 Nicotine dependence, unspecified, uncomplicated; F14.10 Cocaine abuse, uncomplicated; R07.9 Chest pain, unspecified; T38.3X6A Underdosing of insulin and oral hypoglycemic [antidiabetic] drugs, initial encounter; Z91.128 Patient's intentional underdosing of medication regimen for other reason; Z79.4 Long term (current) use of insulin; Z59.4 Lack of adequate food; Z87.820 Personal history of traumatic brain injury; Z20.822 Contact with and (suspected) exposure to COVID-19
CPT/HCPCS: J1650; S0164

== ENCOUNTER 2020-10-15 07:12 | Emergency (ER) | payer MEDICARE, MEDICAID ==
[~2020-10-15] VITALS: Ht 172.7 cm; Wt 68.2 kg
[~2020-10-15 07:12] MED LIST changes: +METFORMIN500 M2 PO
[2020-10-15 08:19] LABS: HEMATOCRIT 43.8 % (39.0-50.0); HEMOGLOBIN 14.9 g/dl (14.0-18.0); IMMATURE GRANULOCYTES 0.2 % (0.0-5.0); MEAN CELL VOLUME 86.2 fL CALC (80.0-100.0); MEAN CORPUSCULAR HGB 29.3 pG CALC (26.0-32.0); NEUT# 3.56 thou/uL (1.82-7.42); RED BLOOD COUNT 5.08 mill/uL (4.70-6.10); RED CELL DISTRI WIDTH 12.4 % (11.5-15.5)
[2020-10-15] MEDS ORDERED: DULOXETINE HCL60 MG PO (08:41)
[2020-10-15] MEDS ORDERED: LOSARTAN POTASS25 MG PO (08:41)
[2020-10-15] MEDS ORDERED: GLIPIZIDE10 M2 PO (08:41)
[2020-10-15 08:42] LABS: ALBUMIN 3.9 g/dL (3.2-5.0); ALKALINE PHOSPHATASE 100 u/l (38-126); BILIRUBIN, TOTAL 0.9 mg/dL (0.0-1.4); BUN 17 mg/dL (9-20); BUN/CREATININE RATIO 17 (12-20 (CALC)); CHLORIDE 89 mmol/l (95-108); GFR > 60 ML/MIN (>=60 (CALC)); GFR FOR AFR.AMER. > 60 ML/MIN (>=60 (CALC)); SGOT/AST 19 u/l (17-59); TOTAL PROTEIN 6.8 g/dL (6.3-8.2)
[2020-10-15] MEDS ORDERED: ROSUVASTATIN CA20 MG PO (08:42)
[2020-10-15] MEDS ORDERED: MIRTAZAPINE15 MG PO (08:42)
[2020-10-15] MEDS ORDERED: NOVOLIN R100 UNIT/M SC (08:43)
[2020-10-15 08:50] LABS: ANION GAP 17 (6-22 (CALC)); CARBON DIOXIDE 22 mmol/l (22-30); POTASSIUM 4.6 mmol/l (3.5-5.1); SODIUM 123 mmol/l (137-146)
[2020-10-15 08:54] LABS: URINE BILIRUBIN - DIPSTICK NEGATIVE (NEGATIVE); URINE BLOOD DIPSTICK NEGATIVE (NEGATIVE); URINE COLOR YELLOW; URINE GLUCOSE - DIPSTICK >=1000 mg/dL (NEGATIVE); URINE KETONE NEGATIVE (NEGATIVE); URINE LEUK ESTERASE NEGATIVE (NEGATIVE); URINE PH 6.5 (4.5-8.0); URINE PROTEIN - DIPSTICK NEGATIVE (NEG-TRACE); URINE SPECIFIC GRAVITY <=1.005; URINE UROBILINOGEN - DIPSTICK 0.2 E.U./dL (0.2)
[2020-10-15 08:55] LABS: URINE NITRITE - DIPSTICK NEGATIVE (Negative)
[2020-10-15] MEDS ORDERED: BACTROBAN TOP (12:04)
[2020-10-15] MEDS ORDERED: HYDROCORTISONE2.5 % EX (12:04)
[2020-10-15 12:31] VITALS: BP 111/70
== END 2020-10-15 12:32 | disposition home or self-care (01) ==
LOC: ED 07:12
DX: L29.9 Pruritus, unspecified (principal); E11.65 Type 2 diabetes mellitus with hyperglycemia; F14.10 Cocaine abuse, uncomplicated; E11.40 Type 2 diabetes mellitus with diabetic neuropathy, unspecified; I10 Essential (primary) hypertension; Z79.4 Long term (current) use of insulin; T38.3X6A Underdosing of insulin and oral hypoglycemic [antidiabetic] drugs, initial encounter; Z91.128 Patient's intentional underdosing of medication regimen for other reason

== ENCOUNTER 2020-11-09 17:42 | Emergency (ER) | payer MEDICARE, MEDICAID ==
[~2020-11-09] VITALS: Ht 172.7 cm; Wt 72.7 kg
[~2020-11-09 17:42] MED LIST changes: +BACTROBAN TOP; +DULOXETINE HCL60 MG PO; +GLIPIZIDE10 M2 PO; +HYDROCORTISONE2.5 % EX; +LOSARTAN POTASS25 MG PO; +NOVOLIN R100 UNIT/M SC; +ROSUVASTATIN CA20 MG PO
[2020-11-09 18:49] LABS: URINE BILIRUBIN - DIPSTICK NEGATIVE (NEGATIVE); URINE BLOOD DIPSTICK NEGATIVE (NEGATIVE); URINE CLARITY CLEAR; URINE COLOR YELLOW; URINE GLUCOSE - DIPSTICK >=1000 mg/dL (NEGATIVE); URINE KETONE NEGATIVE (NEGATIVE); URINE LEUK ESTERASE NEGATIVE (Negative); URINE NITRITE - DIPSTICK NEGATIVE (Negative); URINE PH 5.5 (4.5-8.0); URINE PROTEIN - DIPSTICK NEGATIVE (NEG-TRACE); URINE SPECIFIC GRAVITY >=1.030; URINE UROBILINOGEN - DIPSTICK 0.2 E.U./dL (0.2)
[2020-11-09 19:23] LABS: HEMATOCRIT 39.2 % (39.0-50.0); HEMOGLOBIN 13.4 g/dl (14.0-18.0); IMMATURE GRANULOCYTES 0.1 % (0.0-5.0); MEAN CELL VOLUME 87.5 fL CALC (80.0-100.0); MEAN CORPUSCULAR HGB 29.9 pG CALC (26.0-32.0); MEAN CORPUSCULAR HGB CONC 34.2 g/dL CAL (32.0-36.0); NEUT# 5.85 thou/uL (1.82-7.42); RED BLOOD COUNT 4.48 mill/uL (4.70-6.10); RED CELL DISTRI WIDTH 13.8 % (11.5-15.5)
[2020-11-09 19:38] LABS: ALBUMIN 4.6 g/dL (3.2-5.0); ALKALINE PHOSPHATASE 109 u/l (38-126); BILIRUBIN, TOTAL 1.1 mg/dL (0.0-1.4); BUN 25 mg/dL (9-20); BUN/CREATININE RATIO 26 (12-20 (CALC)); CHLORIDE 95 mmol/l (95-108); ETHYL ALCOHOL 0 mg/dl (0-30); GFR > 60 ML/MIN (>=60 (CALC)); GFR FOR AFR.AMER. > 60 ML/MIN (>=60 (CALC)); LIPASE 104 u/l (23-300)
[2020-11-09 19:41] LABS: ANION GAP 12 (6-22 (CALC)); CARBON DIOXIDE 28 mmol/l (22-30); POTASSIUM 5.3 mmol/l (3.5-5.1); SGOT/AST 44 u/l (17-59); SODIUM 130 mmol/l (137-146); TOTAL PROTEIN 8.4 g/dL (6.3-8.2)
[2020-11-09 22:07] LABS: ALBUMIN 4.3 g/dL (3.2-5.0); ALKALINE PHOSPHATASE 99 u/l (38-126); BUN 22 mg/dL (9-20); BUN/CREATININE RATIO 27 (12-20 (CALC)); CARBON DIOXIDE 25 mmol/l (22-30); CHLORIDE 100 mmol/l (95-108); CREATININE 0.8 mg/dL (0.7-1.3); GFR > 60 ML/MIN (>=60 (CALC)); GFR FOR AFR.AMER. > 60 ML/MIN (>=60 (CALC)); SGOT/AST 23 u/l (17-59); SODIUM 134 mmol/l (137-146); TOTAL PROTEIN 7.7 g/dL (6.3-8.2)
[2020-11-09 22:08] LABS: ANION GAP 13 (6-22 (CALC)); BILIRUBIN, TOTAL 0.6 mg/dL (0.0-1.4); POTASSIUM 3.9 mmol/l (3.5-5.1)
[2020-11-10 07:40] VITALS: BP 117/68
== END 2020-11-10 07:40 | disposition home or self-care (01) ==
LOC: ED 17:42
PROC: 0CQ1XZZ Repair Lower Lip, External Approach (ICD-10-PCS; principal; 2020-11-09)
DX: R55 Syncope and collapse (principal); S01.511A Laceration without foreign body of lip, initial encounter; S03.2XXA Dislocation of tooth, initial encounter; E11.65 Type 2 diabetes mellitus with hyperglycemia; R91.1 Solitary pulmonary nodule; I10 Essential (primary) hypertension; E11.40 Type 2 diabetes mellitus with diabetic neuropathy, unspecified; F17.200 Nicotine dependence, unspecified, uncomplicated; W18.39XA Other fall on same level, initial encounter; Y93.H9 Activity, other involving exterior property and land maintenance, building and construction; Y92.007 Garden or yard of unspecified non-institutional (private) residence as the place of occurrence of the external cause; Z79.4 Long term (current) use of insulin; Z87.820 Personal history of traumatic brain injury

== ENCOUNTER 2020-12-03 16:54 | Emergency (ER) | payer MEDICARE, MEDICAID ==
[~2020-12-03] VITALS: Ht 172.7 cm; Wt 69.0 kg
[2020-12-03 17:58] LABS: HEMATOCRIT 36.5 % (39.0-50.0); HEMOGLOBIN 12.9 g/dl (14.0-18.0); IMMATURE GRANULOCYTES 0.1 % (0.0-5.0); MEAN CELL VOLUME 84.3 fL CALC (80.0-100.0); MEAN CORPUSCULAR HGB 29.8 pG CALC (26.0-32.0); MEAN CORPUSCULAR HGB CONC 35.3 g/dL CAL (32.0-36.0); NEUT# 5.06 thou/uL (1.82-7.42); RED BLOOD COUNT 4.33 mill/uL (4.70-6.10); RED CELL DISTRI WIDTH 12.9 % (11.5-15.5)
[2020-12-03 18:11] LABS: ALBUMIN 3.9 g/dL (3.2-5.0); ALKALINE PHOSPHATASE 85 u/l (38-126); ANION GAP 17 (6-22 (CALC)); BILIRUBIN, TOTAL 0.4 mg/dL (0.0-1.4); BUN 25 mg/dL (9-20); BUN/CREATININE RATIO 16 (12-20 (CALC)); CARBON DIOXIDE 26 mmol/l (22-30); CHLORIDE 92 mmol/l (95-108); CREATININE 1.6 mg/dL (0.7-1.3); GFR 45 ML/MIN (>=60 (CALC)); GFR FOR AFR.AMER. 55 ML/MIN (>=60 (CALC)); POTASSIUM 4.2 mmol/l (3.5-5.1); SGOT/AST 23 u/l (17-59); SODIUM 130 mmol/l (137-146); TOTAL PROTEIN 6.8 g/dL (6.3-8.2)
[2020-12-03] MEDS ORDERED: ZPAK PO (23:26)
[2020-12-04 06:42] VITALS: BP 101/55
== END 2020-12-04 06:43 | disposition home or self-care (01) ==
LOC: ED 16:54
DX: J06.9 Acute upper respiratory infection, unspecified (principal); E11.65 Type 2 diabetes mellitus with hyperglycemia; E87.2 Acidosis; I10 Essential (primary) hypertension; E11.40 Type 2 diabetes mellitus with diabetic neuropathy, unspecified; Z79.4 Long term (current) use of insulin; Z87.820 Personal history of traumatic brain injury; Z20.822 Contact with and (suspected) exposure to COVID-19
CPT/HCPCS: Q9967

== ENCOUNTER 2020-12-27 05:02 | Emergency (ER) | payer MEDICARE, MEDICAID ==
[~2020-12-27] VITALS: Ht 172.7 cm; Wt 60.0 kg
[2020-12-27 05:25] LABS: HEMATOCRIT 42.2 % (39.0-50.0); HEMOGLOBIN 14.6 g/dl (14.0-18.0); IMMATURE GRANULOCYTES 0.1 % (0.0-5.0); MEAN CELL VOLUME 83.9 fL CALC (80.0-100.0); MEAN CORPUSCULAR HGB CONC 34.6 g/dL CAL (32.0-36.0); NEUT# 4.26 thou/uL (1.82-7.42); RED BLOOD COUNT 5.03 mill/uL (4.70-6.10); RED CELL DISTRI WIDTH 12.3 % (11.5-15.5)
[2020-12-27 05:35] LABS: ALBUMIN 4.2 g/dL (3.2-5.0); ALKALINE PHOSPHATASE 92 u/l (38-126); ANION GAP 21 (6-22 (CALC)); BUN 27 mg/dL (9-20); BUN/CREATININE RATIO 23 (12-20 (CALC)); CARBON DIOXIDE 20 mmol/l (22-30); CHLORIDE 95 mmol/l (95-108); CREATININE 1.2 mg/dL (0.7-1.3); ETHYL ALCOHOL 0 mg/dl (0-30); GFR > 60 ML/MIN (>=60 (CALC)); GFR FOR AFR.AMER. > 60 ML/MIN (>=60 (CALC)); LIPASE 92 u/l (23-300); POTASSIUM 4.5 mmol/l (3.5-5.1); SGOT/AST 26 u/l (17-59); SODIUM 131 mmol/l (137-146); TOTAL PROTEIN 7.6 g/dL (6.3-8.2)
[2020-12-27 07:52] LABS: URINE BILIRUBIN - DIPSTICK NEGATIVE (NEGATIVE); URINE BLOOD DIPSTICK NEGATIVE (NEGATIVE); URINE COLOR YELLOW; URINE GLUCOSE - DIPSTICK >=1000 mg/dL (NEGATIVE); URINE KETONE 40 mg/dL (NEGATIVE); URINE LEUK ESTERASE NEGATIVE (NEGATIVE); URINE PH 5.5 (4.5-8.0); URINE PROTEIN - DIPSTICK NEGATIVE (NEG-TRACE); URINE UROBILINOGEN - DIPSTICK 0.2 E.U./dL (0.2)
[2020-12-27 07:53] LABS: URINE NITRITE - DIPSTICK NEGATIVE (Negative)
[2020-12-27 11:12] VITALS: BP 155/84
== END 2020-12-27 11:16 ==
LOC: ED 05:02
DX: R45.851 Suicidal ideations (principal); E11.65 Type 2 diabetes mellitus with hyperglycemia; T38.3X6A Underdosing of insulin and oral hypoglycemic [antidiabetic] drugs, initial encounter; R91.8 Other nonspecific abnormal finding of lung field; I10 Essential (primary) hypertension; E11.40 Type 2 diabetes mellitus with diabetic neuropathy, unspecified; Z91.128 Patient's intentional underdosing of medication regimen for other reason; Z79.4 Long term (current) use of insulin; Z87.820 Personal history of traumatic brain injury; Z20.822 Contact with and (suspected) exposure to COVID-19

== ENCOUNTER 2021-09-11 16:55 | Emergency (ER) | payer MEDICARE, MEDICAID ==
[2021-09-11] VITALS (8 sets, daily range): BP systolic 108–151; BP diastolic 58–92
[~2021-09-11] VITALS: Ht 172.7 cm; Wt 48.9 kg
[2021-09-11 17:34] LABS: IMMATURE GRANULOCYTES 0.2 % (0.0-5.0); MEAN CELL VOLUME 82.1 fL CALC (80.0-100.0); MEAN CORPUSCULAR HGB 28.9 pG CALC (26.0-32.0); MEAN CORPUSCULAR HGB CONC 35.2 g/dL CAL (32.0-36.0); NEUT# 3.5 thou/uL (1.82-7.42); RED BLOOD COUNT 5.6 mill/uL (4.70-6.10)
[2021-09-11 17:38] LABS: HEMOGLOBIN 16.2 g/dl (14.0-18.0)
[2021-09-11 17:48] LABS: ALBUMIN 4.3 g/dL (3.2-5.0); ALKALINE PHOSPHATASE 107 u/l (38-126); BILIRUBIN, TOTAL 0.9 mg/dL (0.0-1.4); BUN 33 mg/dL (9-20); BUN/CREATININE RATIO 17 (12-20 (CALC)); CARBON DIOXIDE 25 mmol/l (22-30); CHLORIDE 87 mmol/l (95-108); CPK 368 u/l (52-200); GFR FOR AFR.AMER. 42 ML/MIN (>=60 (CALC)); GFR OTHER RACES 35 ML/MIN (>=60 (CALC)); MAGNESIUM 2.1 mg/dL (1.6-2.3); SGOT/AST 29 u/l (17-59); TOTAL PROTEIN 7.8 g/dL (6.3-8.2)
[2021-09-11 18:15] LABS: ANION GAP 17 (6-22 (CALC)); SODIUM 124 mmol/l (137-146)
[2021-09-11 21:28] LABS: ANION GAP 14 (6-22 (CALC)); BUN 28 mg/dL (9-20); BUN/CREATININE RATIO 19 (12-20 (CALC)); CARBON DIOXIDE 26 mmol/l (22-30); CHLORIDE 103 mmol/l (95-108); CREATININE 1.4 mg/dL (0.7-1.3); GFR FOR AFR.AMER. > 60 ML/MIN (>=60 (CALC)); GFR OTHER RACES 53 ML/MIN (>=60 (CALC)); POTASSIUM 4.3 mmol/l (3.5-5.1); SODIUM 139 mmol/l (137-146)
== END 2021-09-11 23:04 | disposition home or self-care (01) ==
LOC: ED 16:55
PROVIDERS: Emergency Medicine; Internal Medicine
DX: E11.65 Type 2 diabetes mellitus with hyperglycemia (principal); E87.1 Hypo-osmolality and hyponatremia; N28.9 Disorder of kidney and ureter, unspecified; T38.3X6A Underdosing of insulin and oral hypoglycemic [antidiabetic] drugs, initial encounter; Z91.128 Patient's intentional underdosing of medication regimen for other reason; E11.40 Type 2 diabetes mellitus with diabetic neuropathy, unspecified; I10 Essential (primary) hypertension; Z79.84 Long term (current) use of oral hypoglycemic drugs; Z79.4 Long term (current) use of insulin; Z87.820 Personal history of traumatic brain injury

== ENCOUNTER 2021-10-14 20:17 | Emergency (ER) | payer OTHER, MEDICARE, MEDICAID ==
[~2021-10-14] VITALS: Ht 172.7 cm; Wt 77.2 kg
[2021-10-14 20:51] VITALS: BP 137/75
[2021-10-14 21:04] LABS: MEAN CORPUSCULAR HGB 29.9 pG CALC (26.0-32.0); MEAN CORPUSCULAR HGB CONC 33.4 g/dL CAL (32.0-36.0); NEUT# 2.85 thou/uL (1.82-7.42); RED BLOOD COUNT 4.41 mill/uL (4.70-6.10); RED CELL DISTRI WIDTH 13.5 % (11.5-15.5)
[2021-10-14 21:05] LABS: HEMATOCRIT 39.5 % (39.0-50.0); HEMOGLOBIN 13.2 g/dl (14.0-18.0); MEAN CELL VOLUME 89.6 fL CALC (80.0-100.0)
[2021-10-14 21:18] LABS: BILIRUBIN, TOTAL 0.5 mg/dL (0.0-1.4); CREATININE 1.5 mg/dL (0.7-1.3); TOTAL PROTEIN 6.9 g/dL (6.3-8.2)
[2021-10-14] MEDS ORDERED: DIABETES PILL (22:20)
[2021-10-14 22:41] VITALS: BP 145/84
[2021-10-14 22:49] VITALS: BP 145/84
== END 2021-10-14 22:55 | disposition home or self-care (01) | DRG 605 ==
LOC: ED 20:17
PROVIDERS: Family Medicine
DX: S20.212A Contusion of left front wall of thorax, initial encounter (principal); I10 Essential (primary) hypertension; E11.40 Type 2 diabetes mellitus with diabetic neuropathy, unspecified; V49.50XA Passenger injured in collision with unspecified motor vehicles in traffic accident, initial encounter; Z79.4 Long term (current) use of insulin; Z87.820 Personal history of traumatic brain injury
CPT/HCPCS: Q9967

== ENCOUNTER 2021-11-12 13:07 | Emergency (ER) | payer MEDICARE, MEDICAID ==
[~2021-11-12] VITALS: Ht 172.7 cm; Wt 76.0 kg
[2021-11-12] VITALS (16 sets, daily range): BP systolic 99–150; BP diastolic 58–92
[~2021-11-12 13:07] MED LIST changes: +DIABETES PILL
[2021-11-12 13:49] LABS: IMMATURE GRANULOCYTES 0.2 % (0.0-5.0); MEAN CORPUSCULAR HGB 29.9 pG CALC (26.0-32.0); MEAN CORPUSCULAR HGB CONC 36.4 g/dL CAL (32.0-36.0); NEUT# 3.55 thou/uL (1.82-7.42); RED BLOOD COUNT 5.59 mill/uL (4.70-6.10); RED CELL DISTRI WIDTH 11.7 % (11.5-15.5)
[2021-11-12 14:03] LABS: ALBUMIN 4.2 g/dL (3.2-5.0); BILIRUBIN, TOTAL 0.6 mg/dL (0.0-1.4); BUN 28 mg/dL (9-20); BUN/CREATININE RATIO 21 (12-20 (CALC)); CARBON DIOXIDE 24 mmol/l (22-30); CHLORIDE 95 mmol/l (95-108); CREATININE 1.3 mg/dL (0.7-1.3); GFR FOR AFR.AMER. > 60 ML/MIN (>=60 (CALC)); GFR OTHER RACES 57 ML/MIN (>=60 (CALC)); LIPASE 105 u/l (23-300); SGOT/AST 18 u/l (17-59); TOTAL PROTEIN 7.6 g/dL (6.3-8.2)
[2021-11-12 14:04] LABS: HEMATOCRIT 45.9 % (39.0-50.0); HEMOGLOBIN 16.7 g/dl (14.0-18.0); MEAN CELL VOLUME 82.1 fL CALC (80.0-100.0)
[2021-11-12 14:11] LABS: ALKALINE PHOSPHATASE 124 u/l (38-126); ANION GAP 15 (6-22 (CALC)); POTASSIUM 5.2 mmol/l (3.5-5.1); SODIUM 129 mmol/l (137-146)
== END 2021-11-12 17:49 | disposition home or self-care (01) ==
LOC: ED 13:07
PROVIDERS: Family Medicine
DX: R07.9 Chest pain, unspecified (principal); E11.65 Type 2 diabetes mellitus with hyperglycemia; I10 Essential (primary) hypertension; E11.40 Type 2 diabetes mellitus with diabetic neuropathy, unspecified; Z79.4 Long term (current) use of insulin; Z87.820 Personal history of traumatic brain injury

== ENCOUNTER 2023-10-15 12:31 | Emergency (ER) | payer MEDICARE, OTHER ==
[~2023-10-15] VITALS: Ht 172.7 cm; Wt 75.9 kg
[~2023-10-15 12:31] MED LIST changes: +ADLT ASA LOW81 MG PO; +QUETIAPINE FUMA50 MG PO; +TRULICITY0.75 MG/0. SC
[2023-10-15 12:36] VITALS: BP 158/89
[2023-10-15 12:45] VITALS: BP 162/99
[2023-10-15] MEDS ORDERED: SODIUM CHLORIDE 0.9% 1,000 ML IV ONE (12:55)
[2023-10-15 13:00] VITALS: BP 165/91
[2023-10-15 13:11] LABS: BASO% 0.5 % (0-3); EOS% 1.9 % (0-8); IMMATURE GRANULOCYTES 0.2 % (0.0-5.0); LYMPH% 22.8 % (15-41); MEAN CELL VOLUME 79.7 fL CALC (80.0-100.0); MEAN CORPUSCULAR HGB 27.3 pG CALC (26.0-32.0); MEAN CORPUSCULAR HGB CONC 34.2 g/dL CAL (32.0-36.0); MONO% 8.5 % (2-13); NEUT# 4.15 thou/uL (1.82-7.42); NEUT% 66.1 % (42-76); RED BLOOD COUNT 5.32 mill/uL (4.70-6.10)
[2023-10-15] MEDS ORDERED: LANTUS SOL100 UNIT/M SC (13:13)
[2023-10-15] MEDS ORDERED: NOVOLIN R100 UNIT/1 SC (13:13)
[2023-10-15 13:14] LABS: HEMATOCRIT 42.4 % (39.0-50.0); HEMOGLOBIN 14.5 g/dl (14.0-18.0)
[2023-10-15 13:15] VITALS: BP 164/95
[2023-10-15 13:18] VITALS: BP 164/95
[2023-10-15 13:29] LABS: ALBUMIN 4.3 g/dL (3.2-5.0); BILIRUBIN, TOTAL 0.6 mg/dL (0.2-1.3); CREATININE 1.2 mg/dL (0.7-1.3); POTASSIUM 4.5 mmol/l (3.5-5.1); TOTAL PROTEIN 7.8 g/dL (6.3-8.2)
== END 2023-10-15 13:18 | disposition left against medical advice (07) ==
LOC: ED 12:31
PROVIDERS: Family Medicine
DX: E11.65 Type 2 diabetes mellitus with hyperglycemia (principal); E11.40 Type 2 diabetes mellitus with diabetic neuropathy, unspecified; I10 Essential (primary) hypertension; E78.5 Hyperlipidemia, unspecified; F17.210 Nicotine dependence, cigarettes, uncomplicated; T38.3X6A Underdosing of insulin and oral hypoglycemic [antidiabetic] drugs, initial encounter; Z91.128 Patient's intentional underdosing of medication regimen for other reason; Z87.820 Personal history of traumatic brain injury; Z86.73 Personal history of transient ischemic attack (TIA), and cerebral infarction without residual deficits; Z79.4 Long term (current) use of insulin; Z59.00 Homelessness unspecified; Z53.29 Procedure and treatment not carried out because of patient's decision for other reasons

== ENCOUNTER 2023-10-15 13:48 | Emergency (ER) | payer MEDICARE, OTHER ==
[2023-10-15] VITALS (15 sets, daily range): BP systolic 133–186; BP diastolic 76–125
[~2023-10-15] VITALS: Ht 172.7 cm; Wt 68.0 kg
[~2023-10-15 13:48] MED LIST changes: +LANTUS SOL100 UNIT/M SC
[2023-10-15] MEDS ORDERED: SODIUM CHLORIDE 0.9% 1,000 ML IV ONE ×2 (14:00→15:10)
[2023-10-15] MEDS ORDERED: INSULIN REGULAR (HUMAN) 100 UNIT/ML INJ SC ONE (17:00)
== END 2023-10-15 18:20 | disposition home or self-care (01) ==
LOC: ED 13:48
DX: E11.65 Type 2 diabetes mellitus with hyperglycemia (principal); E11.40 Type 2 diabetes mellitus with diabetic neuropathy, unspecified; I10 Essential (primary) hypertension; F17.200 Nicotine dependence, unspecified, uncomplicated; T38.3X6A Underdosing of insulin and oral hypoglycemic [antidiabetic] drugs, initial encounter; Z91.128 Patient's intentional underdosing of medication regimen for other reason; Z86.73 Personal history of transient ischemic attack (TIA), and cerebral infarction without residual deficits; Z87.820 Personal history of traumatic brain injury; Z79.4 Long term (current) use of insulin; Z59.00 Homelessness unspecified; E11.9 Type 2 diabetes mellitus without complications; E78.5 Hyperlipidemia, unspecified; F17.210 Nicotine dependence, cigarettes, uncomplicated; Z53.29 Procedure and treatment not carried out because of patient's decision for other reasons

== ENCOUNTER 2023-12-17 17:17 | Emergency (ER) | payer MEDICARE, MEDICAID ==
[2023-12-17] MEDS ORDERED: SODIUM BICARBONATE 8.4% 50 ML/SYR IV ONE (17:25)
[2023-12-17] MEDS ORDERED: EPINEPHrine HCL 0.1 MG/ML 10 ML SYR IV ONE (17:25)
[2023-12-17] MEDS ORDERED: CALCIUM CHLORIDE 10% 100 MG/ML 10ML SYR IV ONE (17:25)
[2023-12-17 17:44] VITALS: BP 00/00
== END 2023-12-17 20:10 | disposition expired ==
LOC: ED 17:17
PROC: 5A12012 Performance of Cardiac Output, Single, Manual (ICD-10-PCS; principal; 2023-12-17)
DX: T17.928A Food in respiratory tract, part unspecified causing other injury, initial encounter (principal); I46.8 Cardiac arrest due to other underlying condition; I10 Essential (primary) hypertension; E11.40 Type 2 diabetes mellitus with diabetic neuropathy, unspecified; F17.200 Nicotine dependence, unspecified, uncomplicated; W44.F3XA Food entering into or through a natural orifice, initial encounter; Y92.009 Unspecified place in unspecified non-institutional (private) residence as the place of occurrence of the external cause; Z86.73 Personal history of transient ischemic attack (TIA), and cerebral infarction without residual deficits; Z87.820 Personal history of traumatic brain injury; Z79.4 Long term (current) use of insulin; Z79.85 Long-term (current) use of injectable non-insulin antidiabetic drugs